=== PATIENT | female | born 1945 | race Caucasian/White ===

== ENCOUNTER → 2020-06-03 11:32 | Outpatient (BNVA) | payer MEDICARE, SELFPAY | PROVIDERS: Family Provider Nurse Practitioner; PCP Nurse Practitioner Family; Visit Provider Nurse Practitioner Family | DX: E11.9 Type 2 diabetes mellitus without complications (principal); E55.9 Vitamin D deficiency, unspecified; R41.0 Disorientation, unspecified; R53.83 Other fatigue; Z13.6 Encounter for screening for cardiovascular disorders | CPT/HCPCS: 80053; 80061; 82306; 83036; 84439; 84443; 84481; 85025 ==

== ENCOUNTER → 2020-06-04 15:31 | Outpatient (BNVA) | payer MEDICARE, SELFPAY | PROVIDERS: Family Provider Nurse Practitioner; PCP Nurse Practitioner Family; Visit Provider Nurse Practitioner Family | DX: N39.0 Urinary tract infection, site not specified (principal); E11.9 Type 2 diabetes mellitus without complications; R31.9 Hematuria, unspecified | CPT/HCPCS: 80053; 81003 ==

== ENCOUNTER 2020-06-17 19:18 | Emergency (ER) | payer MEDICARE, SELFPAY ==
[2020-06-17 19:28] VITALS: BP 126/90; PULSE 106; RESP 19; TEMP 37.2; O2SAT 96; BMI 24.2
--- NOTE | 2020-06-17 19:30 | XRR_ITS ---
PROCEDURE INFORMATION: Exam: XR Chest, 1 View Exam date and time: 06/17/2020 8:04 PM Age: 75 years old Clinical indication: Dyspnea TECHNIQUE: Imaging protocol: XR of the chest Views: 1 view. COMPARISON: No relevant prior studies available. FINDINGS: Lungs: Unremarkable. No consolidation. Pleural space: Unremarkable. No pleural effusion. No pneumothorax. Heart/Mediastinum: Unremarkable. No cardiomegaly. Bones/joints: Unremarkable. XR/XR chest 1V portable [id number] IMPRESSION: No acute findings.
[2020-06-17 19:34] VITALS: PULSE 107; RESP 18; O2SAT 95
[2020-06-17 19:44] LABS: ABG PCO2 30.7 mmHg (35-45); ABG PH Result 7.44 (7.35-7.45); Arterial Blood Gas Hematocrit 44.5 % (37-47); Base Excess ABG -2.3 mmol/L (-2.0-2.0); Blood Gas Allen Test Pos; Blood Gas Sample Site Radial, right; Blood Gas Sample Type Arterial; HCO3 ABG 20.8 mmol/L (22-26); PO2 ABG 74.2 mmHg (80.0-100.0)
--- NOTE | 2020-06-17 19:55 | W.ED.COVID ---
HPI - COVID General: Chief Complaint: COVID symptoms Stated Complaint: WEAKNESS Time Seen by Provider: 06/17/20 19:30 Source: patient and EMS Mode of arrival: EMS Limitations: no limitations Triage information: Has fever, cough or shortness of breath. Exposure to COVID + person last 14 days History of Present Illness: HPI Narrative: Ms. Ridley is a very nice 75-year-old female who comes in complaining of persistent nausea. Patient states she is not eating or drinking much because she is severely nauseated and nothing tastes good and she does not want to eat or drink. Patient has mild shortness of breath and her is currently hospitalized for the COVID-19 virus. She does not report significant fever, cough, loss of sense of taste or loss sense of smell. She complains of generalized weakness and just severe nausea. States otherwise she feels well denies any other complaints or concerns. COVID 19 common symptoms: positive nausea; negative fever(s), chills, non-productive cough, productive cough, dyspnea, fatigue, body aches, headache(s), throat pain, vomiting or diarrhea COVID 19 other sytmptoms: negative chest pain or confusion COVID Results: SARS-CoV-2 Antigen (Rapid) Positive (Negative) H 06/17/20 19:37 06/17/20 Review of Systems Const: Denies: fever(s), chills, body aches, fatigue, malaise or diaphoresis Eyes: Denies: change in vision, blurry vision, photophobia, eye discomfort, eye discharge, eye redness or yellow eyes ENMT: Denies: throat pain, odynophagia, hoarseness, swelling of lips/tongue, ear or mastoid pain, ear discharge, change in hearing or nasal discharge Card: Denies: chest pain, palpitations, irregular heart rhythm, edema, lightheadedness, syncope, pre-syncope, dyspnea on exertion or orthopnea Resp: Denies: dyspnea, productive cough, non-productive cough, wheezing, hemoptysis or chest congestion GI: Reports: nausea; Denies: abdominal pain, vomiting, hematemesis, coffee ground emesis, heartburn, diarrhea, constipation, GI cramping, hematochezia or melena : Denies: flank pain, dysuria, urinary frequency, urinary urgency or hematuria Musc: Denies: neck pain, back pain, extremity pain, extremity swelling, joint pain, joint swelling, joint redness, joint warmth or joint stiffness Skin/Breast: Denies: rash, pruritus, erythema, skin pain or skin tenderness Neuro: Denies: headache(s), numbness in extremities, weakness in extremities, sensory changes, lack of coordination, difficulty walking, dizziness, vertigo, confusion, Slurred speech present or seizure-like activity Clay/Lymph: Denies: easy bruising, easy bleeding, petechiae, purpura or enlarged lymph nodes All/Imm: Denies: urticaria, throat swelling, tongue swelling, facial swelling or acute wheezing PFSH ED PFSH: Medical History Confusion Diabetes mellitus, type II Fatigue Hypertension screen Lower respiratory infection Urinary incontinence Urinary tract infection Vitamin D deficiency Surgical History S/P abdominal hysterectomy S/P cholecystectomy Physical Exam Const: COMMON NORMALS: no acute distress, patient oriented x3, no limitations and alert GENERAL APPEARANCE: cooperative HENMT: COMMON NORMALS: normocephalic, atraumatic, external ears normal, EAC's normal and Normal external nose present HEAD & SCALP: normal to inspection, normocephalic and atraumatic FACE & SINUS: normal facial exam and face symmetric NOSE: Normal external nose present and Normal nares present EXTERNAL EAR: Yes external ears normal EXTERNAL AUDITORY CANAL: EAC's normal MOUTH: Normal oral and palatal mucosa present, lip normal and tongue normal Eye: COMMON NORMALS: Equal, round and reactive pupils present and conjunctivae normal GENERAL EYE: appearance normal, both eyes and all related structures ALIGNMENT: Yes alignment normal PERIORBITAL: periorbital findings normal EYELID: eyelids normal CONJUNCTIVA: Yes conjunctivae normal SCLERA: sclerae normal PUPIL: Yes Equal, round and reactive pupils present Neck/C-Spine: COMMON NORMALS: full ROM, no lymphadenopathy, supple, no meningeal signs and no JVD GENERAL: Yes normal visual inspection and Yes trachea midline Chest: COMMONS NORMALS: normal inspection of the chest and normal palpation of entire chest wall Resp: COMMON NORMALS: normal respiratory effort, No retractions, No use of accessory muscles and clear to auscultation bilaterally EFFORT & INSPECTION: Yes able to speak in complete sentences and Yes symmetric chest movement AUSCULTATION: clear to auscultation bilaterally, no crackles, no rales, no rhonchi and no wheezes Cardio: COMMON NORMALS: no JVD, regular rate, regular rhythm, S1 normal heart sound present and S2 normal heart sound present RATE: regular rate RHYTHM: regular rhythm HEART SOUNDS: S1 normal heart sound present, S2 normal heart sound present, no click, no gallops, no murmurs and no rubs GI: COMMON NORMALS: Soft to palpation and No hepatosplenomegaly present PALPATION: Yes Soft to palpation, No Tenderness to palpation present (GI), No Guarding due to palpation present (GI), No Rigid due to palpation, Yes No hepatosplenomegaly present, No Hernia present, No Palpable mass present and No Pulsatile mass present : COMMON NORMALS: Yes no CVA tenderness BLADDER/KIDNEY EXAM: Yes no CVA tenderness EXTERNAL FEMALE EXAM: No Hernia present Back/Pelvis: COMMON NORMALS: no CVA tenderness, thoracic and lumbar spine normal to inspection, no thoracic nor lumbar tenderness and thoraco-lumbar ROM normal Extremity: COMMON NORMALS: normal to inspection, full ROM, capillary refill normal, no joint enlargement, no clubbing, cyanosis or edema and no calf tenderness Neuro: COMMON NORMALS: patient oriented x3, CN's II-XII intact bilaterally, moves all extremities, no focal motor deficits and no sensory deficits noted SENSORIUM/ORIENTATION: Yes alert MENINGEAL SIGNS: Yes no meningeal signs SPEECH: speech normal Psych: COMMON NORMALS: mental status grossly normal, Normal thought process present, cooperative, normal affect, speech normal and activity/motor behavior normal SPEECH: Yes normal speech THOUGHT PROCESS: Normal thought process present Skin: COMMON NORMALS: no rashes or lesions noted, turgor normal, no jaundice, no petechiae and no mottling GENERAL SKIN EXAM: no rashes or lesions noted and turgor normal Course Vital Signs: Vital signs: Vital Signs Temperature 98.5 F 06/17/20 23:29 Pulse Rate 95 06/17/20 23:29 Respiratory Rate 16 06/17/20 23:29 Blood Pressure 118/70 06/17/20 23:29 Pulse Oximetry 95 06/17/20 23:29 MDM - COVID MDM Narrative Medical decision making narrative: Mrs. Ridley is a very nice 75-year-old female who comes in complaining of primarily nausea. Her is COVID-19 positive and she was uncertain of her status but her test tonight is positive. The patient is not hypoxic, hypotensive and she does not appear septic to my evaluation. Patient has been able to eat and drink here. She is feeling better after IV fluids. I did review with her at length things that she would need to do at home such as boost, Ensure and I have prescribed nausea medicine for her at discharge. She went home with a pulse oximeter and will monitor her pulse ox there and if it goes low she will return but here her vital signs of all been normal. Patient declines any further evaluation and care and is ready to go home. Lab Data Attestation: I reviewed the patient's lab results. Result diagrams: 06/17/20 19:43 06/17/20 19:43 Labs: Lab Results 06/17/20 06/17/20 06/17/20 Range/Units 19:35 19:37 19:43 WBC (4.0-10.0) 10^3/uL RBC (4.1-5.3) 10^6/uL Hgb (11.5-15.3) g/dL Hct (37.0-47.0) % MCV (81-99) fL MCH (28.0-34.0) pg MCHC (30.0-36.0) g/dL RDW (12.1-15.1) % Plt Count (130-400) 10^3/cmm MPV (7.4-10.4) fL Neut % (Auto) % Lymph % (Auto) % Rincon % (Auto) % Eos % (Auto) % Baso % (Auto) % Neut # (Auto) (1.8-7.7) 10^3/uL Lymph # (Auto) (0.8-4.8) 10^3/uL Rincon # (Auto) (0.2-0.9) 10^3/uL Eos # (Auto) (0.0-0.8) 10^3/uL Baso # (Auto) (0.0-0.1) 10^3/uL Nucleated RBC % (auto) % Nucleated RBCs # /100WBC PT 14.30 (12.1-14.9) SECONDS INR 1.07 (0.8-1.2) Fibrinogen 621 H (174-498) mg/dL Specimen Type Arterial Sample Site Radial, right ABG pH 7.44 (7.35-7.45) ABG pCO2 30.7 L (35-45) mmHg ABG pO2 74.2 L (80.0-100.0) mmHg ABG HCO3 20.8 L (22-26) mmol/L ABG Base Excess -2.3 L (-2.0-2.0) mmol/L William Test Pos Hematocrit 44.5 (37-47) % Key Account Manager ID [id number] Sodium (136-145) mmol/L Potassium (3.5-5.1) mmol/L Chloride (98-107) mmol/L Carbon Dioxide (22-29) mmol/L Anion Gap (5-19) BUN (8-23) mg/dL Creatinine (0.5-0.9) mg/dL GFR Calculation Glucose (65-115) mg/dL Calculated Osmolality (285-295) mOsm/kg Lactic Acid (0.5-2.2) mmol/L Calcium (8.5-10.5) mg/dL Magnesium (1.7-2.3) mg/dL Ferritin (15-150) ng/mL Total Bilirubin (0.15-1.2) mg/dL AST (0-32) U/L ALT (0-33) U/L Alkaline Phosphatase (35-105) IU/L Lactate Dehydrogenase (135-214) U/L C-Reactive Protein (0.0-4.9) mg/L Total Protein (6.6-8.7) g/dL Albumin (3.5-5.2) g/dL Globulin (1.3-4.6) g/dL Lipase (13-60) U/L Procalcitonin (0-0.5) ng/mL Urine Color (Yellow) Urine Appearance (CLEAR) Urine pH (5-7) Ur Specific Parker (1.005-1.030) Urine Protein (Negative) Urine Glucose (UA) (Normal) Urine Ketones (Negative) Urine Blood (Negative) Urine Nitrate (Negative) Urine Bilirubin (Negative) Urine Urobilinogen (Negative) mg/dL Ur Leukocyte Esterase (Negative) Urine RBC (0-2) /hpf Urine WBC (0-5) /hpf Ur Squamous Epith Cells (0-5) /hpf Amorphous Sediment Urine Bacteria (NONE) /hpf Hyaline Casts /lpf Urine Mucus /hpf SARS-CoV-2 Ag (Rapid) Positive H (Negative) 06/17/20 06/17/20 06/17/20 Range/Units 19:43 19:43 19:43 WBC 11.6 H (4.0-10.0) 10^3/uL RBC 5.28 (4.1-5.3) 10^6/uL Hgb 14.8 (11.5-15.3) g/dL Hct 44.1 (37.0-47.0) % MCV 83.5 (81-99) fL MCH 28.0 (28.0-34.0) pg MCHC 33.6 (30.0-36.0) g/dL RDW 12.7 (12.1-15.1) % Plt Count 220 (130-400) 10^3/cmm MPV 10.6 H (7.4-10.4) fL Neut % (Auto) 88.2 % Lymph % (Auto) 7.8 % Rincon % (Auto) 3.4 % Eos % (Auto) 0.1 % Baso % (Auto) 0.2 % Neut # (Auto) 10.23 H (1.8-7.7) 10^3/uL Lymph # (Auto) 0.9 (0.8-4.8) 10^3/uL Rincon # (Auto) 0.4 (0.2-0.9) 10^3/uL Eos # (Auto) 0.0 (0.0-0.8) 10^3/uL Baso # (Auto) 0.0 (0.0-0.1) 10^3/uL Nucleated RBC % (auto) 0 % Nucleated RBCs # 0.0 /100WBC PT (12.1-14.9) SECONDS INR (0.8-1.2) Fibrinogen (174-498) mg/dL Specimen Type Sample Site ABG pH (7.35-7.45) ABG pCO2 (35-45) mmHg ABG pO2 (80.0-100.0) mmHg ABG HCO3 (22-26) mmol/L ABG Base Excess (-2.0-2.0) mmol/L William Test Hematocrit (37-47) % Key Account Manager ID Sodium 133 L (136-145) mmol/L Potassium 3.8 (3.5-5.1) mmol/L Chloride 93 L (98-107) mmol/L Carbon Dioxide 21 L (22-29) mmol/L Anion Gap 22.8 H (5-19) BUN 23 (8-23) mg/dL Creatinine 0.7 (0.5-0.9) mg/dL GFR Calculation Not Reportable Glucose 286 H (65-115) mg/dL Calculated Osmolality 290 (285-295) mOsm/kg Lactic Acid 1.9 (0.5-2.2) mmol/L Calcium 9.0 (8.5-10.5) mg/dL Magnesium 2.2 (1.7-2.3) mg/dL Ferritin 862 H (15-150) ng/mL Total Bilirubin 0.9 (0.15-1.2) mg/dL AST 50 H (0-32) U/L ALT 57 H (0-33) U/L Alkaline Phosphatase 106 H (35-105) IU/L Lactate Dehydrogenase 317 H (135-214) U/L C-Reactive Protein 129.7 H (0.0-4.9) mg/L Total Protein 7.2 (6.6-8.7) g/dL Albumin 3.9 (3.5-5.2) g/dL Globulin 3.3 (1.3-4.6) g/dL Lipase 23 (13-60) U/L Procalcitonin 0.38 (0-0.5) ng/mL Urine Color (Yellow) Urine Appearance (CLEAR) Urine pH (5-7) Ur Specific Parker (1.005-1.030) Urine Protein (Negative) Urine Glucose (UA) (Normal) Urine Ketones (Negative) Urine Blood (Negative) Urine Nitrate (Negative) Urine Bilirubin (Negative) Urine Urobilinogen (Negative) mg/dL Ur Leukocyte Esterase (Negative) Urine RBC (0-2) /hpf Urine WBC (0-5) /hpf Ur Squamous Epith Cells (0-5) /hpf Amorphous Sediment Urine Bacteria (NONE) /hpf Hyaline Casts /lpf Urine Mucus /hpf SARS-CoV-2 Ag (Rapid) (Negative) 06/17/20 Range/Units 21:42 WBC (4.0-10.0) 10^3/uL RBC (4.1-5.3) 10^6/uL Hgb (11.5-15.3) g/dL Hct (37.0-47.0) % MCV (81-99) fL MCH (28.0-34.0) pg MCHC (30.0-36.0) g/dL RDW (12.1-15.1) % Plt Count (130-400) 10^3/cmm MPV (7.4-10.4) fL Neut % (Auto) % Lymph % (Auto) % Rincon % (Auto) % Eos % (Auto) % Baso % (Auto) % Neut # (Auto) (1.8-7.7) 10^3/uL Lymph # (Auto) (0.8-4.8) 10^3/uL Rincon # (Auto) (0.2-0.9) 10^3/uL Eos # (Auto) (0.0-0.8) 10^3/uL Baso # (Auto) (0.0-0.1) 10^3/uL Nucleated RBC % (auto) % Nucleated RBCs # /100WBC PT (12.1-14.9) SECONDS INR (0.8-1.2) Fibrinogen (174-498) mg/dL Specimen Type Sample Site ABG pH (7.35-7.45) ABG pCO2 (35-45) mmHg ABG pO2 (80.0-100.0) mmHg ABG HCO3 (22-26) mmol/L ABG Base Excess (-2.0-2.0) mmol/L William Test Hematocrit (37-47) % Key Account Manager ID Sodium (136-145) mmol/L Potassium (3.5-5.1) mmol/L Chloride (98-107) mmol/L Carbon Dioxide (22-29) mmol/L Anion Gap (5-19) BUN (8-23) mg/dL Creatinine (0.5-0.9) mg/dL GFR Calculation Glucose (65-115) mg/dL Calculated Osmolality (285-295) mOsm/kg Lactic Acid (0.5-2.2) mmol/L Calcium (8.5-10.5) mg/dL Magnesium (1.7-2.3) mg/dL Ferritin (15-150) ng/mL Total Bilirubin (0.15-1.2) mg/dL AST (0-32) U/L ALT (0-33) U/L Alkaline Phosphatase (35-105) IU/L Lactate Dehydrogenase (135-214) U/L C-Reactive Protein (0.0-4.9) mg/L Total Protein (6.6-8.7) g/dL Albumin (3.5-5.2) g/dL Globulin (1.3-4.6) g/dL Lipase (13-60) U/L Procalcitonin (0-0.5) ng/mL Urine Color Yellow (Yellow) Urine Appearance Sl hazy (CLEAR) Urine pH 5 (5-7) Ur Specific Parker 1.020 (1.005-1.030) Urine Protein Neg (Negative) Urine Glucose (UA) 4+ H (Normal) Urine Ketones 3+ H (Negative) Urine Blood Neg (Negative) Urine Nitrate Negative (Negative) Urine Bilirubin Neg (Negative) Urine Urobilinogen Norm (Negative) mg/dL Ur Leukocyte Esterase Negative (Negative) Urine RBC 0-4 H (0-2) /hpf Urine WBC 5-10 H (0-5) /hpf Ur Squamous Epith Cells 10-15 H (0-5) /hpf Amorphous Sediment Not Reportable Urine Bacteria 1+ H (NONE) /hpf Hyaline Casts 0-4 H /lpf Urine Mucus 1+ /hpf SARS-CoV-2 Ag (Rapid) (Negative) COVID Results: SARS-CoV-2 Antigen (Rapid) Positive (Negative) H 06/17/20 19:37 06/17/20 Imaging Data CXR: Attestation: I personally reviewed and interpreted this imaging study as follows: My impression: No acute cardiopulmonary findings. Discharge Plan Discharge Patient Disposition: Home Clinical Impression: Viral pneumonitis, COVID-19 virus infection Condition: Stable Prescriptions: New Decadron 6 mg tablet 6 mg PO DAILY Qty: 10 RF: 0 No Action Combigan 0.2-0.5 % drops 1 drop ophthalmic (eye) BID RF: 0 glimepiride 1 mg tablet PO RF: 0 ciprofloxacin HCl [Cipro] 250 mg tablet 250 mg PO BID 5 Days Qty: 10 RF: 0 Januvia 25 mg tablet 25 mg PO DAILY 90 Days Qty: 90 RF: 1 oxybutynin chloride 5 mg tablet 5 mg PO DAILY 30 Days Qty: 30 RF: 0 levofloxacin 500 mg tablet 500 mg PO DAILY 5 Days Qty: 5 RF: 0 azithromycin 250 mg tablet See Rx Instructions PO .COMPLEX Qty: 6 RF: 0 Discharge Orders: Discharge Order (Routine); Ordered 06/17/20 Ordered By: Keren Jimenez Referrals: Joe Petersen MD [Physician] - Discharge Diet: Advance as tolerated Discharge Activity: Increase activity as tolerated Patient Instructions: Viral Pneumonia (ED) Activity Restrictions/Additional Instructions: Please return to the ER immediately for any of the signs or symptoms listed on your discharge instruction sheets, worsening/changing of your symptoms, you are not getting better as quickly as expected, or for ANY other cause or concerns. Keep yourself at home and quarantined away from anyone else until your doctor or the health department says that you are okay to resume your normal activities. Return to the ER for uncontrolled fever, increased shortness of breath, increased weakness, or for any other cause for concern. Use the pulse oximeter that was given you at discharge and if your pulse oximetry goes below 90% please return to the ER for recheck. Discharge Date/Time: 06/17/20 23:29 Coding Level of Care Code ED [employer] for Aidee Fwd Exam Comprehensive
[2020-06-17 20:02] VITALS: BP 134/81; PULSE 104; RESP 17; O2SAT 95
[2020-06-17 20:05] LABS: Basophils % 0.2 %; Eosinophils % 0.1 %; Hematocrit 44.1 % (37.0-47.0); Hemoglobin 14.8 g/dL (11.5-15.3); Lymphocytes # 0.9 10^3/uL (0.8-4.8); Lymphocytes % 7.8 %; Mean Corpuscular HGB Conc 33.6 g/dL (30.0-36.0); Mean Corpuscular Volume 83.5 fL (81-99); Mean Platelet Volume 10.6 fL (7.4-10.4); Monocytes # 0.4 10^3/uL (0.2-0.9); Monocytes % 3.4 %; Neutrophils # 10.23 10^3/uL (1.8-7.7); Neutrophils % 88.2 %; Nucleated Red Blood Cells % 0 %; Platelet Count 220 10^3/cmm (130-400); Red Blood Count 5.28 10^6/uL (4.1-5.3); Red Cell Distribution Width 12.7 % (12.1-15.1); White Blood Count 11.6 10^3/uL (4.0-10.0)
[2020-06-17] MEDS: ondansetron 2 mg/ML SDV 2 mL 4 MG IVP (20:05)
[2020-06-17] MEDS: sodium chloride 0.9% 1,000 ML 999 ML IV ×2 (20:05→21:47)
[2020-06-17 20:11] LABS: Fibrinogen 621 mg/dL (174-498); INR 1.07 (0.8-1.2)
[2020-06-17 20:24] LABS: Lactic Sepsis W/Reflex 1.9 mmol/L (0.5-2.2)
--- NOTE | 2020-06-17 20:25 | PC.NURSE ---
Patient felt like she needed to urinate. Patient tired to urinate but was unable to go.
[2020-06-17 20:27] LABS: Procalcitonin 0.38 ng/mL (0-0.5)
[2020-06-17 20:38] LABS: Alanine Aminotransferase 57 U/L (0-33); Albumin Level 3.9 g/dL (3.5-5.2); Alkaline Phosphatase 106 IU/L (35-105); Anion Gap 22.8 (5-19); Aspartate Amino Transferase 50 U/L (0-32); Blood Urea Nitrogen 23 mg/dL (8-23); C Reactive Protein 129.7 mg/L (0.0-4.9); Carbon Dioxide 21 mmol/L (22-29); Chloride 93 mmol/L (98-107); Ferritin 862 ng/mL (15-150); Globulin 3.3 g/dL (1.3-4.6); Glucose 286 mg/dL (65-115); Lactate Dehydrogenase 317 U/L (135-214); Lipase 23 U/L (13-60); Magnesium 2.2 mg/dL (1.7-2.3); Osmolality Calculated 290 mOsm/kg (285-295); Potassium 3.8 mmol/L (3.5-5.1); Sodium 133 mmol/L (136-145); Total Bilirubin 0.9 mg/dL (0.15-1.2); Total Protein 7.2 g/dL (6.6-8.7)
[2020-06-17 21:11] LABS: SARS Covid-2 Antigen Positive (Negative)
[2020-06-17 21:42] VITALS: BP 108/62; PULSE 84; RESP 16; O2SAT 95
[2020-06-17] MEDS: dexamethasone 10 mg/mL INJ IVP (21:45)
[2020-06-17 22:18] LABS: Bilirubin Urine Neg (Negative); Blood Urine Neg (Negative); Glucose Urine UA 4+ (Normal); Ketones Urine 3+ (Negative); Leukocyte Esterase Urine Negative (Negative); Nitrate Urine Negative (Negative); Protein Urine Neg (Negative); Urine Appearance SL Hazy (CLEAR); Urine Color Yellow (Yellow); Urobilinogen Urine Norm (Negative); pH Urine 5 (5-7)
[2020-06-17 22:19] LABS: RBC Urine 0-4 /hpf (0-2)
[2020-06-17 22:20] LABS: Bacteria Urine 1+ /hpf; Hyaline Casts Urine 0-4 /lpf; Mucus Urine 1+ /hpf
[2020-06-17 22:21] LABS: Add Urine Culture? No
[2020-06-17 23:29] VITALS: BP 118/70; PULSE 95; RESP 16; TEMP 36.9; O2SAT 95
== END 2020-06-17 23:29 | disposition home or self-care (01) ==
PROVIDERS: Emergency Provider Emergency Medicine
DX: U07.1 COVID-19 (principal); J12.89 Other viral pneumonia; E11.9 Type 2 diabetes mellitus without complications
CPT/HCPCS: 12345; 36600; 71045; 80053; 81001; 82728; 82803; 83605; 83615; 83690; 83735; 84145; 85025; 85384; 85610; 86140; 87040; 87426; 96361; 96374; 96375; 99283; 99284; J1100; J2405; J7030

== ENCOUNTER → 2020-07-08 11:51 | Outpatient (BNVA) | payer MEDICARE, SELFPAY | PROVIDERS: Visit Provider Nurse Practitioner Family | DX: E11.9 Type 2 diabetes mellitus without complications (principal); D64.9 Anemia, unspecified; E55.9 Vitamin D deficiency, unspecified | CPT/HCPCS: 36415; 80053; 82607; 82728; 85025 ==

== ENCOUNTER → 2021-06-18 09:28 | Outpatient (BNVA) | payer MEDICARE, SELFPAY | PROVIDERS: PCP Nurse Practitioner Family; Visit Provider Nurse Practitioner Family | DX: E11.9 Type 2 diabetes mellitus without complications (principal); R53.83 Other fatigue; Z13.6 Encounter for screening for cardiovascular disorders; E55.9 Vitamin D deficiency, unspecified | CPT/HCPCS: 80053; 80061; 81003; 82306; 83036; 83735; 84100; 84443; 85025; 87086 ==

== ENCOUNTER → 2021-07-07 11:44 | Outpatient (BNVA) | payer MEDICARE, SELFPAY | PROVIDERS: PCP Nurse Practitioner Family; Visit Provider Nurse Practitioner Family | DX: D64.89 Other specified anemias (principal); R32 Unspecified urinary incontinence | CPT/HCPCS: 81003; 82607; 83921; 87086 ==

== ENCOUNTER → 2021-08-04 09:43 | Outpatient (BNVA) | payer MEDICARE, SELFPAY | PROVIDERS: PCP Nurse Practitioner Family; Visit Provider Nurse Practitioner Family | DX: N39.0 Urinary tract infection, site not specified (principal) | CPT/HCPCS: 81003; 87077; 87086; 87184 ==

== ENCOUNTER → 2021-08-28 08:59 | Outpatient (BNVA) | payer MEDICARE, SELFPAY | PROVIDERS: PCP Nurse Practitioner Family; Visit Provider Urology | DX: N39.0 Urinary tract infection, site not specified (principal) | CPT/HCPCS: 81003 ==

== ENCOUNTER → 2021-12-22 13:49 | Outpatient (BNVA) | payer MEDICARE, SELFPAY | PROVIDERS: PCP Nurse Practitioner Family; Visit Provider Urology | DX: N39.0 Urinary tract infection, site not specified (principal); N39.41 Urge incontinence; R41.89 Other symptoms and signs involving cognitive functions and awareness | CPT/HCPCS: 81003 ==

== ENCOUNTER → 2024-08-01 16:16 | Outpatient (BNVA) | payer MEDICARE, SELFPAY | PROVIDERS: PCP Nurse Practitioner Family; Visit Provider Nurse Practitioner | DX: N39.0 Urinary tract infection, site not specified (principal) | CPT/HCPCS: 81000 ==

== ENCOUNTER → 2024-08-09 16:15 | Outpatient (BNVA) | payer MEDICARE, SELFPAY | PROVIDERS: PCP Nurse Practitioner Family; Visit Provider Nurse Practitioner Family | DX: Z13.6 Encounter for screening for cardiovascular disorders (principal); E55.9 Vitamin D deficiency, unspecified; E11.9 Type 2 diabetes mellitus without complications; N39.0 Urinary tract infection, site not specified; D64.89 Other specified anemias; R53.83 Other fatigue | CPT/HCPCS: 80053; 80061; 81003; 82306; 82607; 83036; 83550; 83721; 84443; 85025 ==

== ENCOUNTER → 2024-08-15 10:45 | Outpatient (BNVA) | payer MEDICARE, SELFPAY | PROVIDERS: PCP Nurse Practitioner Family; Visit Provider Nurse Practitioner Family | DX: Z13.6 Encounter for screening for cardiovascular disorders (principal); E11.9 Type 2 diabetes mellitus without complications; E55.9 Vitamin D deficiency, unspecified; N39.0 Urinary tract infection, site not specified; D64.89 Other specified anemias; R53.83 Other fatigue | CPT/HCPCS: 81003; 87086 ==

== ENCOUNTER → 2025-07-02 10:46 | Outpatient (BNVA) | payer MEDICARE, SELFPAY | PROVIDERS: PCP Nurse Practitioner Family; Visit Provider Nurse Practitioner Family | DX: S99.921A Unspecified injury of right foot, initial encounter (principal); W19.XXXA Unspecified fall, initial encounter; E55.9 Vitamin D deficiency, unspecified; E11.9 Type 2 diabetes mellitus without complications; D64.89 Other specified anemias; R41.89 Other symptoms and signs involving cognitive functions and awareness; U07.1 COVID-19; M16.11 Unilateral primary osteoarthritis, right hip; M19.071 Primary osteoarthritis, right ankle and foot | CPT/HCPCS: 73502; 73630; 80053; 80061; 82306; 82607; 82728; 82746; 83036; 83550; 84443; 85025 ==

== ENCOUNTER 2025-07-03 12:53 | Inpatient (IN) | payer MEDICARE, SELFPAY ==
[2025-07-03] VITALS (9 sets, daily range): BP systolic 159–189; BP diastolic 69–92; PULSE 73–85; RESP 16–17; TEMP 36.8–36.9; O2SAT 93–97; BMI 21.9; BMI 22.6
--- NOTE | 2025-07-03 12:54 | W.ED.EXTPRO ---
HPI - Extremity Problem General: Chief complaint: Extremity Injury, Lower Stated complaint: Fall, AMS History of Present Illness: 80-year-old female with a history of recurrent urinary tract infections, obesity, diabetes, cognitive decline/dementia who presents to the emergency room with confusion, weakness and right foot injury. She is pleasantly confused but smells of urine and nursing reports was also covered in feces and is the beginnings of a sacral wound. She only complains of foot pain. She says she does not know why she is here. No chest pain. No abdominal pain. No reports of vomiting. No focal motor deficits. She is slightly hypertensive on presentation. Related Data Home Medications ?Medication ?Instructions ?Recorded ?Confirmed brimonidine 0.2 %-timolol 0.5 % 1 drop ophthalmic (eye) BID 05/31/20 07/02/25 eye drops [id number] tab PO 08/09/24 07/02/25 fumarate 18 mg-folic acid 400 mcg tablet (One-A-Day Women's Complete) cholecalciferol (vitamin D3) 50 50 mcg PO DAILY 07/03/25 07/03/25 mcg (2,000 unit) tablet (Vitamin D3) cyanocobalamin (vitamin B-12) 1,000 mcg IM Q30D 07/03/25 07/03/25 1,000 mcg/mL injection solution donepezil 10 mg tablet 10 mg PO QPM 07/03/25 07/03/25 glipizide 10 mg tablet 10 mg PO BID 07/03/25 07/03/25 Previous Rx's ?Medication ?Instructions ?Recorded syringe with needle 3 mL 25 x 5/8 #50 ea 06/26/25 (BD Eclipse Luer-Savita) Allergies Allergy/AdvReac Type Severity Reaction Status Date / Time Penicillins Allergy Intermediate rash Verified 07/02/25 10:42 Sulfa (Sulfonamide Allergy Intermediate rash Verified 07/02/25 10:42 Antibiotics) Review of Systems Narrative: Constitutional symptoms: Negative except as documented in HPI. Skin symptoms: Negative except as documented in HPI. Eye symptoms: Negative except as documented in HPI. ENMT symptoms: Negative except as documented in HPI. Respiratory symptoms: Negative except as documented in HPI. Cardiovascular symptoms: Negative except as documented in HPI. Gastrointestinal symptoms: Negative except as documented in HPI. Genitourinary symptoms: Negative except as documented in HPI. Musculoskeletal symptoms: Negative except as documented in HPI. Neurologic symptoms: Negative except as documented in HPI. Psychiatric symptoms: Negative except as documented in HPI. Endocrine symptoms: Negative except as documented in HPI. PFSH ED PFSH: Medical History (Updated 07/03/25 @ 14:32 by Yessenia Moreno MD) Generalized weakness Fall in home, subsequent encounter Urgency incontinence Recurrent UTI Anemia Lower respiratory infection Urinary incontinence Hypertension screen Confusion Fatigue Vitamin D deficiency Diabetes mellitus, type II Surgical History S/P abdominal hysterectomy S/P cholecystectomy Family History Father , AT AGE 64 CAD (coronary artery disease) Mother , IN HER EARLY 70'S CAD (coronary artery disease) Social History Smoking and tobacco/nicotine status: never used tobacco/nicotine Alcohol intake: never Marital status: Current occupational status: retired Physical Exam Narrative: EXAM NARRATIVE: General: Alert, no acute distress. Skin: Warm, dry. Head: Normocephalic, atraumatic. Neck: Supple, trachea midline. Eye: Extraocular movements are intact. Ears, nose, mouth and throat: mucosa moist. Cardiovascular: Regular, Normal peripheral perfusion. Respiratory: Lungs are clear to auscultation, respirations are non-labored, breath sounds are equal, Symmetrical chest wall expansion. Gastrointestinal: Soft, Nontender, Non distended Musculoskeletal: Normal ROM, no deformity. Some bruising on the top of her right foot. Neurological: Alert and oriented to herself and only, No focal neurological deficit observed. Psychiatric: Pleasantly confused Course Vital Signs: Vital signs: Vital Signs Temperature 98.5 F 07/03/25 12:22 Pulse Rate 73 07/03/25 14:30 Respiratory Rate 16 07/03/25 14:28 Blood Pressure 189/87 07/03/25 14:30 Pulse Oximetry 97 07/03/25 14:30 Oxygen Delivery Me thod Room Air 07/03/25 14:30 MDM - Extremity (Nontraumatic) Medical Decision Making Medical decision making: Patient's reason for coming to the emergency room: Confusion, foot pain Social determinants: Patient is and has been caring for her but she has become progressively worse and acutely worse today. She likely will need admission for the intermediate after being admitted here and treated for acute encephalopathy and urinary tract infection I reviewed the patient's medical record. 80-year-old female with a history of recurrent urinary tract infections, obesity, diabetes, cognitive decline/dementia I reviewed the patient's current home meds Patient is on donepezil so likely concerns for dementia. She is also on glipizide. For her diabetes. No anticoagulation listed Alternate historians: EMS. Family. Patient is not giving a reliable history at this time. I talked with son and . She has been having worsening symptoms for a couple of years now but is quite a bit worse today, likely secondary to a urinary tract infection. Differential diagnosis including but not limited to and based on the above HPI, review of systems and physical exam: In this patient with altered mental status: Stroke. Hypoglycemia. Metabolic encephalopathy. Infections such as pneumonia, urinary tract infection, Covid-19, Influenza. Electrolyte abnormalities such as hypernatremia. Renal failure / uremia. Hepatic encephalopathy. Hypoxemia. Hypercapnic respiratory failure. Psychosis. Drug or alcohol intoxication. Medication overdose. Orders placed to evaluate differential diagnosis based on the above differential, HPI and physical exam Chest x-ray: No acute process. No infiltrate. No pneumothorax. This was reviewed and interpreted by myself the emergency room physician. I also reviewed the radiology report. X-ray of the right foot: No acute fractures or dislocations. This was reviewed and interpreted by myself the emergency room physician. I also reviewed the radiology report. CT head without contrast: No acute hemorrhage or edema. Area of decreased attenuation and decreased attenuation involving the left frontal lobe. Appears to be prior infarct with encephalomalacia. No prior studies for comparison. MRI on a nonurgent basis recommended. This was reviewed and interpreted by myself the emergency room physician. I also reviewed the radiology report. EKG: Time 1331. Rate 82. Normal sinus rhythm, nonspecific ST changes, no ectopy, normal CT & QRS intervals, This was reviewed and interpreted by myself the ER physician at 1334 Lab Review: Laboratory results were reviewed and interpreted by myself the emergency room physician. No leukocytosis. No anemia. No renal failure. Patient does have a significant urinary tract infection. ABG shows no abnormalities. Assessment of risk: Level of risk moderate. Patient with a newly diagnosed frontal lobe stroke. This is likely fairly old and contributing to her dementia type symptoms. She is now developing a decubitus ulcer. Consideration of hospitalization: Patient is being hospitalized Reexamination: Patient remained stable. No increased work of breathing. No altered mental status. No focal motor deficits. She does remain a bit hypertensive. Pleasantly confused. I spoke at length with her son and . Consultation: I spoke with Dr. Dickens who is on-call for the hospitalist service who agrees to admission. Assessment and plan: Urinary tract infection Metabolic encephalopathy Cerebrovascular accident Dementia Dehydration Decubitus ulcer ?IV Rocephin and IV normal saline bolus in the emergency room -I discussed the patient with the hospitalist on-call who is admitting the patient. - Discussed findings and plan with patient. Answered any questions. - All laboratory values were reviewed and interpreted personally by myself, the ER physician - All imaging was reviewed and interpreted personally by myself, the ER physician. - Evaluation and treatment of this problem were appropriate in the emergency setting Lab Data 07/03/25 13:52 07/03/25 13:52 Radiology Impressions Chest X-Ray 07/03/25 12:56 IMPRESSION: 1. No acute cardiopulmonary finding. Foot X-Ray 07/03/25 12:56 IMPRESSION: 1. No acute fractures identified. Head CT 07/03/25 12:56 IMPRESSION: 1. No acute intracranial hemorrhage or edema. 2. Area of decreased attenuation and decreased attenuation involving the LEFT frontal lobe. Favor this is only a prior infarct with encephalomalacia. No prior studies for comparison. For further evaluation and exclude mass follow-up MRI with and without contrast can be obtained on a nonurgent basis if clinically thought necessary. No prior studies for comparison. Correlate with prior history of an infarct. 3. Mild atrophy and small vessel disease. Laboratory Results WBC 8.82 10^3/uL (3.29-11.43) 07/03/25 13:52 RBC 4.67 10^6/uL (3.85-5.65) 07/03/25 13:52 Hgb 13.50 g/dL (11.27-16.99) 07/03/25 13:52 Hct 40.1 % (36-47) 07/03/25 13:52 MCV 85.9 fl (85-98) 07/03/25 13:52 MCH 28.9 pg (27-33) 07/03/25 13:52 MCHC 33.7 g/dL (30-55) 07/03/25 13:52 RDW 13.4 % (12.1-15.1) 07/03/25 13:52 Plt Count 201 10^3/cmm (157-399) 07/03/25 13:52 MPV 9.6 fL (7.4-10.4) 07/03/25 13:52 Neut % (Auto) 73.7 % 07/03/25 13:52 Lymph % (Auto) 18.4 % 07/03/25 13:52 Mesa % (Auto) 4.9 % 07/03/25 13:52 Eos % (Auto) 2.2 % 07/03/25 13:52 Baso % (Auto) 0.5 % 07/03/25 13:52 Neut # (Auto) 6.51 10^3/uL (1.8-7.7) 07/03/25 13:52 Lymph # (Auto) 1.6 10^3/uL (0.8-4.8) 07/03/25 13:52 Mesa # (Auto) 0.4 10^3/uL (0.2-0.9) 07/03/25 13:52 Eos # (Auto) 0.2 10^3/uL (0.0-0.8) 07/03/25 13:52 Baso # (Auto) 0.0 10^3/uL (0.0-0.1) 07/03/25 13:52 Nucleated RBC % (auto) 0 % 07/03/25 13:52 Nucleated RBCs # 0.0 /100WBC 07/03/25 13:52 Specimen Type Arterial 07/03/25 13:21 Sample Site Radial, left 07/03/25 13:21 ABG pH 7.45 (7.35-7.45) 07/03/25 13:21 ABG pCO2 42.1 mmHg (35-45) 07/03/25 13:21 ABG pO2 70.8 mmHg (80.0-100.0) L 07/03/25 13:21 ABG PO2/FiO2 Ratio 337 07/03/25 13:21 ABG HCO3 29.1 mmol/L (22-26) H 07/03/25 13:21 ABG O2 Saturation 95.8 07/03/25 13:21 ABG Base Excess 4.5 mmol/L (-2.0-2.0) H 07/03/25 13:21 William Test Pos 07/03/25 13:21 A-a O2 Gradient 3.4 mmHg (5-10) L 07/03/25 13:21 Hematocrit 41.2 % (37-47) 07/03/25 13:21 Hgb O2 Saturation 94.3 % (95-100) L 07/03/25 13:21 Carboxyhemoglobin 1.4 %THgb (0.4-20.1) 07/03/25 13:21 Methemoglobin 0.2 % (0.4-1.5) L 07/03/25 13:21 Total Hemoglobin 13.4 g/dL (12-16) 07/03/25 13:21 Sodium 141.0 mmol/L (131-143) 07/03/25 13:21 Potassium 3.5 mmol/L (3.5-5.0) 07/03/25 13:21 Glucose 234.0 mg/dL (70-115) H 07/03/25 13:21 Ionized Calcium 1.2 mmol/L (1.1-1.4) 07/03/25 13:21 O2 Delivery Device Room air 07/03/25 13:21 FiO2 21.0 % 07/03/25 13:21 Contract Technician ID [place] 07/03/25 13:21 Sodium 140 mmol/L (136-145) 07/03/25 13:52 Potassium 3.9 mmol/L (3.5-5.1) 07/03/25 13:52 Chloride 99 mmol/L (98-107) 07/03/25 13:52 Carbon Dioxide 28 mmol/L (22-29) 07/03/25 13:52 Anion Gap 16.9 (5-19) 07/03/25 13:52 BUN 11 mg/dL (8-23) 07/03/25 13:52 Creatinine 0.6 mg/dL (0.5-0.9) 07/03/25 13:52 GFR Calculation Not Reportable 07/03/25 13:52 Glucose 229 mg/dL (65-115) H 07/03/25 13:52 Calculated Osmolality 297 mOsm/kg (285-295) H 07/03/25 13:52 Lactic Acid 2.0 mmol/L (0.5-2.2) 07/03/25 13:52 Calcium 9.5 mg/dL (8.5-10.5) 07/03/25 13:52 Total Bilirubin 0.7 mg/dL (0.15-1.2) 07/03/25 13:52 AST 56 U/L (0-32) H 07/03/25 13:52 ALT 48 U/L (0-33) H 07/03/25 13:52 Alkaline Phosphatase 112 U/L (35-105) H 07/03/25 13:52 Troponin T Baseline 12 ng/L (0-10) H 07/03/25 13:52 C-Reactive Protein 32.0 mg/L (0.0-4.9) H 07/03/25 13:52 Total Protein 6.6 g/dL (6.6-8.7) 07/03/25 13:52 Albumin 4.0 g/dL (3.5-5.2) 07/03/25 13:52 Globulin 2.6 g/dL (1.3-4.6) 07/03/25 13:52 Urine Color Dark yellow (Yellow) A 07/03/25 12:41 Urine Appearance Cloudy (CLEAR) A 07/03/25 12:41 Urine pH 7.5 (5-7) 07/03/25 12:41 Ur Specific Warren 1.019 (1.005-1.030) 07/03/25 12:41 Urine Protein Trace (Negative) A 07/03/25 12:41 Urine Glucose (UA) Trace (Normal) H 07/03/25 12:41 Urine Ketones 1+ (Negative) H 07/03/25 12:41 Urine Blood Negative (Negative) 07/03/25 12:41 Urine Nitrate Positive (Negative) A 07/03/25 12:41 Urine Bilirubin Negative (Negative) 07/03/25 12:41 Urine Urobilinogen 1.0 mg/dL (Negative) 07/03/25 12:41 Ur Leukocyte Esterase 1+ (Negative) A 07/03/25 12:41 Urine RBC 0-2 /hpf (0-2) 07/03/25 12:41 Urine WBC 21-50 /hpf (0-5) H 07/03/25 12:41 Ur Squamous Epith Cells 0-5 /hpf (0-5) 07/03/25 12:41 Amorphous Sediment Not Reportable 07/03/25 12:41 Urine Bacteria 4+ /hpf (NONE) H 07/03/25 12:41 Hyaline Casts 0-4 /lpf H 07/03/25 12:41 Influenza A (PCR) Negative (Negative) 07/03/25 13:28 Influenza Type B (PCR) Negative (Negative) 07/03/25 13:28 RSV (PCR) Negative (Negative) 07/03/25 13:28 SARS-CoV-2 (PCR) Negative (Negative) 07/03/25 13:28 All radiology interpretation(s) finalized by discharge Discharge Plan Discharge Patient Disposition: Admitted As Inpatient Clinical Impression: Urinary tract infection, Cerebrovascular accident, Cognitive decline, Decubitus ulcer, Unable to ambulate, Encephalopathy Condition: Stable Coding Level of Care Code ED Professor Of Religion for Aidee Bray
--- NOTE | 2025-07-03 12:56 | CT_ITS ---
WS: [id number] CT HEAD NONCONTRAST HISTORY: Encephalopathy, altered mental status TECHNIQUE: Contiguous axial imaging performed through the brain. Bone and soft tissue windows. Sagittal and coronal reformats reviewed. All CT scans at [facility] use at least one of these dose optimization techniques: automated exposure control; mA and/or kV adjustment per patient size (includes targeted exams where dose is matched to clinical indication); or iterative reconstruction. DLP: 1086.68 mGy.cm COMPARISON: None available. No acute intracranial hemorrhage, midline shift or mass effect. Mild cerebral atrophy and small vessel disease. There is edema and slight volume loss in the anterior LEFT frontal lobe. No prior studies for comparison. This is likely a prior infarct. Ventricles: Normal size with no hydrocephalus. No inferior displacement of the cerebellar tonsils. Paranasal sinuses: As visualized are clear. Mastoid air cells: Well pneumatized. Calvarium and scalp: Skull is intact with no soft tissue edema or swelling. CT/CT head wo con* [id number] IMPRESSION: 1. No acute intracranial hemorrhage or edema. 2. Area of decreased attenuation and decreased attenuation involving the LEFT frontal lobe. Favor this is only a prior infarct with encephalomalacia. No prio r studies for comparison. For further evaluation and exclude mass follow-up MRI with and without contrast can be obtained on a nonurgent basis if clinically t hought necessary. No prior studies for comparison. Correlate with prior history of an infarct. 3. Mild atrophy and small vessel disease.
--- NOTE | 2025-07-03 12:56 | XR_ITS ---
WS: [id number] Exam: XR chest 1V portable [id number] Date/Time of Exam: 07/03/2025 12:56 PM Reason For Exam: Weakness Comparison 06/17/2020. Lungs are fully inflated and clear. Cardiomediastinal silhouette is unremarkable for technique. No pleural effusion seen. Bony structures are intact. XR/XR chest 1V portable [id number] IMPRESSION: 1. No acute cardiopulmonary finding.
--- NOTE | 2025-07-03 12:56 | XR_ITS ---
WS: [id number] Exam: XR foot RT min 3V* [id number] Date/Time of Exam: 07/03/2025 12:56 PM Reason For Exam: injury, bruising No acute fracture. Degenerative changes in the IP and midfoot joints. Osteopenia. No soft tissue foreign bodies. XR/XR foot RT min 3V* [id number] IMPRESSION: 1. No acute fractures identified.
[2025-07-03 13:22] LABS: Glucose Urine UA Trace (Normal); Nitrate Urine Positive (Negative); Specific Gravity, Urine 1.019 (1.005-1.030)
--- NOTE | 2025-07-03 13:31 | ECG_ITS ---
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 Measurements Intervals [place] Rate: 82 P: 54 [place]: 166 QRS: 53 QRSD: 77 T: 22 QT: 393 QTc: 459 Interpretive Statements SINUS RHYTHM LOW QRS VOLTAGE IN PRECORDIAL LEADS [QRS DEFLECTION < 1.0 mV IN CHEST LEADS] NONSPECIFIC T-WAVE ABNORMALITY No previous ECG available for comparison Electronically Signed On 07-05-2025 08:58:06 CDT by Ramana Jo M.D. [email or web address]
[2025-07-03 13:32] LABS: ABG PCO2 42.1 mmHg (35-45); ABG PH Result 7.45 (7.35-7.45); Alveolar-Arterial Oxygen Gradi 3.4 mmHg (5-10); Arterial Blood Gas Hematocrit 41.2 % (37-47); Blood Gas Allen Test Pos; Blood Gas Operator Identificat WALCI; Blood Gas Sample Site Radial, left; Blood Gas Sample Type Arterial; Carboxyhemoglobin 1.4 %THgb (0.4-20.1); Glucose Level-ABG 234.0 mg/dL (70-115); HCO3 ABG 29.1 mmol/L (22-26); Ionized Calcium Level - ABG 1.2 mmol/L (1.1-1.4); Methemoglobin 0.2 % (0.4-1.5); Oxygen Saturation ABG 95.8; PO2 ABG 70.8 mmHg (80.0-100.0); PO2 FiO2 Ratio Arterial Blood 337; Potassium Level - ABG 3.5 mmol/L (3.5-5.0); Sodium Level - ABG 141.0 mmol/L (131-143)
--- OUTSIDE RECORDS SUMMARY | 2025-07-03 13:54 | XMS_ITS | Encounter Summary ---
Author Organization [facility] Address [address] [place] [address] Care Team Providers Care Patcher Bowling Ball Name Role Phone Alexander Marie MD Primary Care Provider [phone] Encounter Details Date Type Department Care Team (Late st Contact Info) Description 05/04/2011 Ancillary Orders [facility] Mobile MRI [address] [place] [address] Francisco Rogers MD Optic atrophy Social History Tobacco Use Types Packs/Day Years Used Date Smoking Tobacco: Never Assessed Comments Unknown Sex and Gender Information Value Date Recorded Sex Assigned at Not on file 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 Mild scattered punctiform white matter T2 hyperintensities underlying. Orbits show right optic nerve atrophy in relation to the left. Ocular globes and intraorbital structures are otherwise normal. No mass or infiltrative process. elías 0857 AM - uploaded from [employer]- Narrative 05/04/2011 10:59 AM CDT Exam: MRI ORBITS W WO CONTRAST Date/Time of Exam: May 01, 2011 02:15:00 PM Reason For Exam: OPTIC ATROPHY. Technique: MRI of the orbits was performed prior to and following the administration of intravenous contrast. Contrast: 15 mL [employer]. Findings: Midline structures are within normal limits. Ventricles are nondilated. Cortical volume is maintained. Mild scattered punctiform white matter T2 hyperintensities underlying. No evidence of infarct, mass lesion or hemorrhage. Major intracranial arterial flow voids are maintained. Paranasal sinuses and temporal bones are unremarkable. Dedicated thin section images through the orbits show no mass or infiltrative process. Ocular globes and extraocular muscles are normal and symmetric. There is decreased size of the right post chiasmatic optic nerve diffusely in relation to the left. There is no abnormal enhancement. Procedure Note Serjio Bush, DO - 05/04/2011 Exam: MRI ORBITS W WO CONTRAST Date/Time of Exam: May 01, 2011 02:15:00 PM Reason For Exam: OPTIC ATROPHY. Technique: MRI of the orbits was performed prior to and following the administration of intravenous contrast. Contrast: 15 mL [employer]. Findings: Midline structures are within normal limits. Ventricles are nondilated. Cortical volume is maintained. Mild scattered punctiform white matter T2 hyperintensities underlying. No evidence of infarct, mass lesion or hemorrhage. Major intracranial arterial flow voids are maintained. Paranasal sinuses and temporal bones are unremarkable. Dedicated thin section images through the orbits show no mass or infiltrative process. Ocular globes and extraocular muscles are normal and symmetric. There is decreased size of the right post chiasmatic optic nerve diffusely in relation to the left. There is no abnormal enhancement. IMPRESSION Impression: Grossly normal brain for age. Mild scattered punctiform white matter T2 hyperintensities underlying. Orbits show right optic nerve atrophy in relation to the left. Ocular globes and intraorbital structures are otherwise normal. No mass or infiltrative process. elías 0857 AM - uploaded from [employer]- External Provider [facility] MR ORDERABLES Final Resu lt documented in this encounter Visit Diagnoses Diagnosis Optic atrophy Optic atrophy, unspecified documented in this encounter Care Teams Patcher Bowling Ball Relationship Specialty Start Date End Date Alexander Marie MD [address] [id number] PCP - General Family Practice 01/02/21 documented as of this encounter
--- OUTSIDE RECORDS SUMMARY | 2025-07-03 13:54 | XMS_ITS | Encounter Summary ---
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
--- OUTSIDE RECORDS SUMMARY | 2025-07-03 13:54 | XMS_ITS | Clinical Summary ---
Author Organization [facility] Address [address] [place] [address] Phone Care Team Providers Care Stitcher Feeder Name Role Phone Xiao Lester MD Primary Care Provider Allergies Active Allergy Reactions Criticality Noted Date Comments Atorvastatin Muscle Pain Low 07/24/2011 Codeine Hives High 05/06/2011 Penicillins Rash Low 05/06/2011 Povidone-Iodine Swelling Low 02/27/2016 Simvastatin Muscle Pain Low 07/24/2011 Lutnecr-Pko-Thk Reductase Inhibitors Muscle Pain Low 02/11/2012 Sulfamethoxazole-Trimethoprim Nausea and Vomiting Low 06/30/2022 Travoprost (Benzalkonium) Other (See Comments) 04/03/2015 Itching Medications CALCIUM CARBONATE-VITAM IN D3 ORAL Take 1,000 Int'l Units/L by mouth 2 times daily. Active cyanocobalamin (VITAMIN B-12) 1,000 mcg/mL SolutionIndicat ions:Vitamin B12 deficiency (non anemic) Inject 1 mL (1,000 mcg) by intramuscular injection every 30 days. 3 mL 4 2 Active Syringe with Needle, Disp, (BD Luer-Savita Syringe) 3 mL 25 x 1 1/2 Syringe b12 1000 mg injection IM monthly 12 Each 4 2 Active linaGLIPtin (Tradjenta) 5 mg Tablet Take 1 Tablet (5 mg) by mouth daily. DIABETES 100 Tablet 3 4 Active enalapril (VASOTEC) 2.5 mg tablet Take 1 Tablet (2.5 mg) by mouth daily. 100 Tablet 3 4 Active donepeziL (ARICEPT) 10 mg tabletIndicatio ns:Dementia without behavioral disturbance (CMS/HCC),Cogni tive impairment TAKE 1 TABLET BY MOUTH ONCE DAILY AT BEDTIME 90 Tablet 5 Active Active Problems Problem Noted Date Diagnosed Date Dementia 05/21/2022 Mixed incontinence 03/05/2022 History of 2019 novel coronavirus disease (COVID -19) 01/13/2021 OAB (overactive bladder) 01/13/2021 Vitamin D deficiency 01/13/2021 Multiple thyroid nodules 08/03/2018 Overview (01/02/2021): Added per previsit query ASHD (arteriosclerotic heart disease) 06/24/2018 Overview (01/02/2021): Mild nonobstructive as seen on angiogram 03/18/18. Old myocardial infarction 06/24/2018 Vitamin B12 deficiency (non anemic) 04/25/2018 Myalgia due to statin 04/25/2018 Takotsubo cardiomyopathy 03/25/2018 Type 2 diabetes mellitus wit hout complication, without long-term current use of insulin 01/17/2016 LTG (low tension glaucoma) left mild 04/03/2015 Bilateral pseudophakia 04/03/2015 Mixed hyperlipidemia 08/23/2011 Resolved Problems Problem Noted Date Diagnosed Date Resolved Date History of myocardial infarction 04/25/2018 01/13/2021 Congestive heart failure 03/25/201806/2021 NSTEMI (non-ST elevated myoc ardial infarction) 03/17/2018 04/25/2018 Chest pain 03/17/2018 03/25/2018 Abnormal EKG 07/30/2014 03/25/2018 Anemia 02/01/2013 03/25/2018 Thyroid cyst 07/17/2012 01/13/2021 Prediabetes 07/15/2012 01/17/2016 History of elevated glucose 05/20/2011 03/25/2018 Glaucoma 05/06/2011 06/19/2015 Essential hypertension, benign 05/06/2011 03/05/2022 Encounters Date Type Department Care Team Description 05/30/2025 Orders Only [facility] [address] [facility] [address] [place] [address] Xiao Lester MD Controlled type 2 diabetes mellitus without complication, without long-term current use of insulin ([facility]) from Last 3 Months Immunizations Immunization Administration Dates Next Due (PNEUMOVAX 23)(50 YRS UP) PN EUMOCOCCAL POLYSACCHARIDE (PPV23) 0.5 ML, IM 06/30/2022(Deferred: Other (See comments) - To be documented by administering nurse) INFLUENZA VACCINE HIGH DOSE QUADRIVALENT 65 YR UP PF IM 05/17/2023,05/21/2022 Influenza Seasonal Unspecifi ed Formulation IM 06/06/2020,05/09/2013 Influenza Vaccine Split 3+ Yrs IM 08/07/2016 Influenza Vaccine Split 3+ Yrs PF IM 07/24/2011 Family History Medical History Relation Name Comments Glaucoma Brother Heart Disease Brother Heart Disease Father Prostate Cancer Father Unknown Maternal Grandfather UNKNOWN Glaucoma Mother Heart Disease Mother Unknown Paternal Grandfather UNKNOWN Breast Cancer Neg Hx Colon Cancer Neg Hx Diabetes Neg Hx Ovarian Cancer Neg Hx Relation Name Status Comments Brother Alive Daughter NONE Father Maternal Grandfather UNKNOWN Maternal Grandmother Maternal Uncle Mother Paternal Grandfather UNKNOWN Paternal Grandmother Sister NONE Social History Tobacco Use Types Packs/Day Years Used Date Smoking Tobacco: Never Smokeless Tobacco: Never Tobacco Cessation:Counseling Given: No Alcohol Use Standard Drinks/Week Comments No 0 (1 standard drink = 0.6 oz pur e alcohol) Financial Resource Strain Answer Date R ecorded How hard is it for you to pa y for the very basics like food, housing, medical care, and heating? Patient declined 10/14/2022 Food Insecurity Answer Date Recorded In the past 12 months, have you worried that your food would run out before you had money to buy more? Patient declined 2022 In the past 12 months, did y ou run out of food and didn't have money to buy more? Patient declined 10/14/2022 Transportation Needs Answer Date Record ed In the past 12 months, has l ack of transportation kept you from medical appointments or from getting medications? Patient declined 10/14/2022 Lack of Transportation (Non-Medical) Not on file 10/14/2022 Feeling Safe Answer Date Recorded Are you in a relationship wi th someone who hurts you emotionally and/or physically? No 03/19/2023 Comments No Sex and Gender Information Value Date Recorded Sex Assigned at Not on file Legal Sex Female 5:24 AM [employer] Gender Identity Not on file Sexual Orientation Not on file Last Filed Vital Signs Vital Sign Reading Time Taken Comments Blood Pressure 127/72 02/17/2024 3:48 PM CDT Pulse 104 02/17/2024 3:48 PM CDT Temperature 36.7 C (98 F) 02/17/2024 3:48 PM CDT Respiratory Rate 16 02/17/2024 3:48 PM CDT Oxygen Saturation 99% 02/17/2024 3:48 PM CDT Inhaled Oxygen Concentration - - Weight 65.7 kg (144 lb 12.8 oz) 02/17/2024 3:48 PM CDT Height 167.6 cm (5' 6 ) 02/17/2024 3:48 PM CDT Body Mass Index 23.37 02/17/2024 3:48 PM CDT Plan of Treatment Health Maintenance Due Date Last Done Comments DTAP/TDAP/TD VACCINES (1 - Tdap) 1964 PNEUMOCOCCAL VACCINE 50+ YEA RS (1 of 2 - PCV) 1964 ZOSTER VACCINE (1 of 2) 1995 RSV VACCINE (60+ or ) (1 - 1-dose 75+ series) 2020 OSTEOPOROSIS SCREENING 02/03/2021 02/04/2016, 2015 DIABETES ANNUAL FOOT EXAM 05/21/2023 05/21/2022, DIABETES: A1C (Auto Order) 05/19/202402/16, 03/25/2023, 10/14/2022, Additional history exists DIABETES HBA1C Q 6 MONTHS 08/18/20242023, 03/25/2023, 10/14/2022, Additional history exists KHE eGFR (Auto Order) 09/06/2024 02/18/2024 , 03/25/2023, 03/19/2023, Additional history exists KHE uACR (Auto Order) 09/06/2024 02/17/2024 , 05/17/2023, 03/05/2022, Additional history exists Medicare Advantage ([place]) Preventative Visit/Annual Wellness Visit 09/06/2024 02/17/2024, 10/14/2022, 03/05/2022 DIABETES MICROALBUMIN ANNUAL SCREEN 02/16/2025 02/17/2024, 05/17/2023, 03/05/2022, Additional history exists LDL CHOLESTEROL ANNUAL 02/17/2025 4, 10/14/2022, 03/05/2022, Additional history exists INFLUENZA VACCINE (#1) 2025 3, 05/21/2022, 06/06/2020, Additional history exists DIABETES ANNUAL RETINAL EXAM 07/07/202509/2023, 05/05/2023, 05/20/2018, Additional history exists Procedures Procedure Name Priority Date/Time Associated Diagnosis Comments DIABETES EYE EXAM Routine 07/07/2024 1:09 PM CDT COMPREHENSIVE METABOLIC PANEL Routine 02/18/2024 7:49 AM CDT Controlled type 2 diabetes mellitus without complication, without long-term current use of insulin ([facility]) LIPID PANEL Routine 02/18/2024 7:49 AM CDT Controlled type 2 diabetes mellitus without complication, without long-term current use of insulin ([facility]) HEMOGLOBIN A1C Routine 02/17/2024 4:39 PM CDT Controlled type 2 diabetes mellitus without complication, without long-term current use of insulin (CMS/[facility]) MICROALBUMIN/CREATININ E RATIO, RANDOM UR Routine 02/17/2024 4:38 PM CDT Controlled type 2 diabetes mellitus without complication, without long-term current use of insulin (CMS/[facility]) XR DEXA BONE DENSITY AXIAL 1 OR MORE SITES Routine 02/04/2016 1:14 PM CDT Postmenopausal from Last 3 Months or Most Recently Relevant to Health Maintenance Results * DIABETES EYE EXAM (07/07/2024 1:09 PM CDT) us Abstract Provider HEALTH MAINTENANCE Edited Resu lt - Final * (ABNORMAL) LIPID PANEL (02/18/2024 7:49 AM CDT) CHOLESTEROL 357(H) <200 mg/dL [facility] [place] HDL 32(L) > OR = 50 mg/dL [facility] [place] TRIGLYCERIDE 547(H) <150 mg/dL [facility] [place] Comment: If a non-fasting specimen was collected, consider repeat triglyceride testing on a fasting specimen if clinically indicated. Nix et al. J. of Clin. Lipidol. 2015;9:129-169. There is increased risk of pancreatitis when the triglyceride concentration is very high (> or = 500 mg/dL, especially if > or = 1000 mg/dL). Nix et al. J. of Clin. Lipidol. 2015;9:129-169. LDL CALCULATED mg/dL (calc) [facility] [place] Comment: LDL cholesterol not calculated. Triglyceride levels greater than 400 mg/dL invalidate calculated LDL results. Reference range: <100 Desirable range <100 mg/dL for primary prevention; <70 mg/dL for patients with CHD or diabetic patients with > or = 2 CHD risk factors. LDL-C is now calculated using the Rony-Grier calculation, which is a validated novel method providing better accuracy than the Friedewald equation in the estimation of LDL-C. Rony SS et al. CARLEE. 2013;310(19): 3758-1710 (http://education.iFulfillment.[employer]/faq/PKN569) CHOL/HDL RATIO 11.2(H) <5.0 (calc) [facility] [place] NON-HDL CHOLESTEROL 325(H) <130 mg/dL (calc) [facility] [place] Comment: Non-HDL level > or = 220 is very high and may indicate genetic familial hypercholesterolemia (FH). Clinical assessment and measurement of blood lipid levels should be considered for all first-degree relatives of patients with an FH diagnosis. For patients with diabetes plus 1 major ASCVD risk factor, treating to a non-HDL-C goal of <100 mg/dL (LDL-C of <70 mg/dL) is considered a therapeutic option. Test Performed at: [facility] [address] [place] [address] Renu Soto MD Blood 02/18/2024 7:49 AM CDT 02/19/2024 6:07 AM CDT us Xiao Lester MD CHEMISTRY ORDERABLES Final Result [facility] [phone] [facility] [address] [place] [address] * (ABNORMAL) COMPREHENSIVE METABOLIC PANEL (02/18/2024 7:49 AM CDT) GLUCOSE 388(H) 65 - 99 mg/dL [facility] Comment: Fasting reference interval For someone without known diabetes, a glucose value >125 mg/dL indicates that they may have diabetes and this should be confirmed with a follow-up test. BUN 13 7 - 25 mg/dL [facility] CREATININE 0.95 0.60 - 1.00 mg/dL [facility] GFR 61 > OR = 60 mL/min/1. 73m2 [facility] BUN/CREAT RATIO SEE NOTE: 6 - 22 (calc) [facility] Comment: Not Reported: BUN and Creatinine are within reference range. SODIUM 138 135 - 146 mmol/L [facility] POTASSIUM 3.9 3.5 - 5.3 mmol/L [facility] CHLORIDE 98 98 - 110 mmol/L [facility] CO2 28 20 - 32 mmol/L [facility] CALCIUM 9.4 8.6 - 10.4 mg/dL [facility] TOTAL PROTEIN 6.7 6.1 - 8.1 g/dL [facility] ALBUMIN 4.0 3.6 - 5.1 g/dL [facility] GLOBULIN 2.7 1.9 - 3.7 g/dL (calc) [facility] ALBUMIN/GLOBULIN RATIO 1.5 1.0 - 2.5 (calc) [facility] BILIRUBIN TOTAL 0.6 0.2 - 1.2 mg/dL [facility] ALKALINE PHOSPHATASE 102 37 - 153 U/L [facility] AST 18 10 - 35 U/L [facility] ALT 21 6 - 29 U/L [facility] Comment: Test Performed at: [facility] [address] [address] Renu Soto MD Blood 02/18/2024 7:49 AM CDT 02/19/2024 6:07 AM CDT Xiao Lester MD CHEMISTRY ORDERABLES Final Result [facility] [phone] [facility] [address] [address] * (ABNORMAL) HEMOGLOBIN A1C (02/17/2024 4:39 PM CDT) HEMOGLOBIN A1C 9.9(H) <5.7 % of total Hgb [facility] Comment: For someone without known diabetes, a hemoglobin A1c value of 6.5% or greater indicates that they may have diabetes and this should be confirmed with a follow-up test. For someone with known diabetes, a value <7% indicates that their diabetes is well controlled and a value greater than or equal to 7% indicates suboptimal control. A1c targets should be individualized based on duration of diabetes, age, comorbid conditions, and other considerations. Currently, no consensus exists regarding use of hemoglobin A1c for diagnosis of diabetes for children. ESTIMATED AVERAGE GLUCOSE (MG/DL) 237 mg/dL [facility] ESTIMATED AVERAGE GLUCOSE (MMOL/L) 13.2 mmol/L [facility] Comment: This test was performed on the Shruthi gretta c503 platform. Effective 11/22/23, a change in test platforms from the Feng Lead Burner to the Shruthi gretta c503 may have shifted HbA1c results compared to historical results. Based on laboratory validation testing conducted at [facility], the Shruthi platform relative to the Feng platform had an average increase in HbA1c value of < or = 0.3%. This difference is within accepted variability established by the National Glycohemoglobin Standardization Program. Note that not all individuals will have had a shift in their results and direct comparisons between historical and current results for testing conducted on different platforms is not recommended. Test Performed at: [facility] [address] [facility] [place] [address] Renu Soto MD Blood 02/17/2024 4:39 PM CDT 02/19/2024 6:08 AM CDT us Xiao Lester MD CHEMISTRY ORDERABLES Final Result Performing Organization Address [facility]/ZIP Co de Phone Number [facility] [phone] [facility] [address] [place] [address] [place] [address] * MICROALBUMIN/CREATININE RATIO, RANDOM UR (02/17/2024 4:38 PM CDT) Pathologist [facility] Creatinine, Urine 80 20 - 275 mg/dL [facility] MICROALBUMIN, URINE 1.5 See Note: mg/dL [facility] Comment: Reference Range: Reference Range Not established MICROALBUMIN/CREAT RATIO, UR 19 <30 mg/g creat [facility] Comment: The ADA defines abnormalities in albumin excretion as follows: Albuminuria Category Result (mg/g creatinine) Normal to Mildly increased <30 Moderately increased 30-299 Severely increased > OR = 300 The ADA recommends that at least two of three specimens collected within a 3-6 month period be abnormal before considering a patient to be within a diagnostic category. Test Performed at: [facility] [address] [facility] [place] [address] Renu Soto MD Urine URINE SPECIMEN OBTAINED BY CLEAN CATCH PROCEDURE / Unknown 02/17/2024 4:38 PM CDT 02/19/2024 6:15 AM CDT Xiao Lester MD URINE ORDERABLES Final Resu lt Performing Organization Address City/[facility]/ZIP Co de Phone Number [facility] [phone] [facility] [place] [address] * XR DEXA BONE DENSITY AXIAL 1 OR MORE SITES (02/04/2016 1:14 PM CDT) Anatomical Region Laterality Modality Other Impressions 02/04/2016 3:28 PM CDT 1. Bony osteopenia. Fracture risk is increased. [id number] Narrative 02/04/2016 3:28 PM CDT Exam: XR DEXA BONE DENSITY AXIAL 1 OR MORE SITES Date/Time of Exam: 02/04/2016 1:14 PM Reason For Exam: Postmenopausal. Findings: Bone mineral density is 0.841 g/sq cm with a T score -1.6 and a Z score of 0.3. This classifies as bony osteopenia according to the World Health Organization. Procedure Note Shaheen López, DO - 12/09/2021 Exam: XR DEXA BONE DENSITY AXIAL 1 OR MORE SITES Date/Time of Exam: 02/04/2016 1:14 PM Reason For Exam: Postmenopausal. Findings: Bone mineral density is 0.841 g/sq cm with a T score -1.6 and a Z score of 0.3. This classifies as bony osteopenia according to the World Health Organization. IMPRESSION 1. Bony osteopenia. Fracture risk is increased. [id number] Toña Aguirre FRENCH TRANSLATOR DIAGNOSTIC IMAGING ORDBerna EASON Final Result from Last 3 Months or Most Recently Relevant to Health Maintenance Insurance [address] [place] [id number] [facility] [id number] * Guarantor: SAGAR RIDLEY Account Type Relation to Patient Date of Phone Billing Address Personal/Family [address] [place] [address] [employer] Member Subscriber Plan / Payer (Ef fective 2016-Present) Name:Sagar Ridley Relation to Subscriber:Self Name:Sagar Ridley Payer ID:Not on file Group ID:[id number] Type:RX Medicare Part D Address: [place] [employer] [facility] Care Teams Stitcher Feeder Relationship Specialty Start Date End Date Xiao Lester MD [address] [address] PCP - General Family Practice 03/19/23
--- OUTSIDE RECORDS SUMMARY | 2025-07-03 13:54 | XMS_ITS | Encounter Summary ---
Author Organization [facility] Address [address] [place] [address] Care Team Providers Care U.[place]. Senator Name Role Phone Alexander Marie MD Primary Care Provider [phone] [phone] Reason for Referral * Radiology Services (Routine) - Closed Specialty Diagnoses / Procedures Referred By Lul conley Referred To Contact Radiology Diagnoses Takatsuki syndrome Procedures ECHOCARDIOGRAM W/ CONTRAST AGENT ECHO COMPLETE Cheyenne Valdes NP Phone: tel: fax: [facility] Echo [place] [address] [place] [address] Phone: tel: fax: Referral ID Status Reason Start Date Expiration Date Visits Requested Visits Authorized [id number] Closed Interventional Scheduling (SGF) 06/09/2018 07/10/2019 1 1 Encounter Details Date Type Department Care Team (Late st Contact Info) Description 06/20/2018 Ancillary Orders [facility] Cardiology- [place] [address] [place] [address] Cheyenne Valdes NP [address] [place] [address] Takatsuki syndrome Social History Tobacco Use Types Packs/Day Years Used Date Smoking Tobacco: Never Smokeless Tobacco: Never Alcohol Use Standard Drinks/Week Comments No 0 (1 standard drink = 0.6 oz pur e alcohol) Comments No Sex and Gender Information Value Date Recorded Sex Assigned at Not on file 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 Gender Identity Not on file Sexual Orientation Not on file Occupation Industry Job Start Date Job End Date Not on file Not on file Not on file Not on file documented as of this encounter Plan of Treatment Not on file documented as of this encounter Results * ECHOCARDIOGRAM W/ CONTRAST AGENT (06/20/2018 2:39 PM CDT) EJECTION FRACTION INTERFACE SYSTEM 06/20/2018 1:38 PM CDT Narrative INTERFACE SYSTEM - 06/20/2018 5:08 PM CDT [facility] Echocardiography-[address] [address] Transthoracic Echocardiography Patient: Khai Study ECHO COMPLETE G[place]on K ID: Gender: F : 1945 Age: 73 Room: Study 06/20/2018 Pt Outpatient Date: Status: Study 01:38:01 PM CSN #: [id number] Time: Ordering:Cheyenne Valdes Interpreting:Blayne Winter MD Fire Investigation Manager: Loyda Pastrana [facility] Indications and History: 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 Risk factors: Family history of coronary artery disease. Diabetes mellitus. Labs, prior tests, procedures, and surgery: Echocardiography (03/19/2018). Catheterization (03/18/2018). Summary and Conclusion: - Left ventricle: The cavity size was normal. Wall thickness was at the upper limits of normal. Systolic function was normal. The visually estimated ejection fraction was in the range of 55% to 60%. Images were inadequate for LV wall motion assessment. Diastolic function is indeterminate. - Right ventricle: The cavity size was normal. Systolic function was normal. - Aortic valve: Not well visualized. There was no stenosis. - Mitral valve: Not well visualized. Mobility was not restricted. - Tricuspid valve: Not well visualized. Mobility was not restricted. Impressions: Technically difficult images. Comparison: Compared to the previous report, LV systolic function has improved. Procedure information: Study status: Routine. Procedure: Initial setup. Intravenous access was obtained. Transthoracic echocardiography. Image quality was adequate. The study was technically difficult. Scanning was performed from the parasternal, apical, subcostal, and suprasternal notch acoustic windows. Intravenous contrast (Definity) was administered to opacify the LV. There were no complications. There were no contrast reactions. Patient was monitored per protocol. Study components: M-mode, 2D, complete spectral Doppler, and color Doppler. Height: 167.6cm. Height: 66in. Weight: 66.7kg. Weight: 146.7lb. BMI: 23.7kg/m\S\2. BSA: 1.77m\S\2. Blood pressure: 108/68 Study date: 06/20/2018. Study time: 01:38 PM. Location: Echo laboratory. Cardiac Anatomy: LEFT VENTRICLE: The cavity size was normal. Wall thickness was at the upper limits of normal. Systolic function was normal. The visually estimated ejection fraction was in the range of 55% to 60%. Images were inadequate for LV wall motion assessment. Diastolic function is indeterminate. RIGHT VENTRICLE: The cavity size was normal. Systolic function was normal. LEFT ATRIUM: The atrium was normal in size. RIGHT ATRIUM: The atrium was normal in size. ATRIAL SEPTUM: Not well visualized. AORTIC VALVE: Not well visualized. Mobility was not restricted. Doppler: There was no stenosis. No significant regurgitation. Peak velocity ratio of LVOT to aortic valve: 0.78. Peak gradient (S): 10mm Hg. MITRAL VALVE: Not well visualized. Mobility was not restricted. No echocardiographic evidence for prolapse. Doppler: There was no evidence for stenosis. No significant regurgitation. Valve area by pressure half-time: 3.26cm\S\2. Indexed valve area by pressure half-time: 1.84cm\S\2/m\S\2. Peak gradient (D): 3mm Hg. TRICUSPID VALVE: Not well visualized. Mobility was not restricted. Doppler: There was no evidence for stenosis. No significant regurgitation. PULMONIC VALVE: Not well visualized. Doppler: There was no evidence for stenosis. Trivial regurgitation. PERICARDIUM: A minimal pericardial effusion and/or fat pad was identified. AORTA: The aorta was not well visualized. Aortic root: The aortic root was normal in size. SYSTEMIC VEINS: Inferior vena cava: Not well visualized. 2D measurements Doppler measurements Left ventricle Left ventricle LVID ED, PLAX 4.4 cm IVRT 87 ms LVID ES, PLAX 2.5 cm E', lat tamara, TDI 5 cm/sec FS, 43 % E/e', lat tamara, 18 endocardial, TDI PLAX E', med tamara, TDI 5 cm/sec FS, PLAX chord 43 % E/e', med tamara, 17 LVPW, ED 1.2 cm TDI IVS/LVPW ratio, 0.87 E', avg, TDI 5 cm/sec ED E/e', avg, TDI 18 Vol, ED 88 ml LVOT Vol, ES 23 ml Peak josue, S 120.76 cm/sec Qs 4.7 L/min Peak gradient, S 6 mm Hg Vol/bsa, ED 50 ml/m\S\2 Aortic valve Vol/bsa, ES 13 ml/m\S\2 Peak josue, S 155.47 cm/sec Qs/bsa 2.7 L/(min-m\S\2) Peak gradient, S 10 mm Hg Vol, ES, 1-p 52 ml Peak josue ratio, 0.78 A2C LVOT/AV EF, 1-p A2C 76 % Mitral valve Stroke vol, 1-p 65 ml Peak E josue 89.83 cm/sec A2C Peak A josue 106.94 cm/sec SV, 1-p A4C 50 ml Deceleration 233 ms SV/bsa, 1-p A4C 28 ml/m\S\2 time SV, 2-p 51 ml Pressure 68 ms SV/bsa, 2-p 29.1 ml/m\S\2 half-time Ventricular septum Peak gradient, D 3 mm Hg IVS, ED 1.0 cm Peak E/A ratio 0.84 Left atrium Area (PHT) 3.26 cm\S\2 AP dim 2.8 cm Area/bsa (PHT) 1.84 cm\S\2/m\S\2 AP dim index 1.6 cm/m\S\2 SI dim, A4C 5.3 cm Other echo measurements Vol, ES, 1-p 45 ml Other A4C Vol/bsa, ES, 26 ml/m\S\2 1-p A4C Vol, ES, 1-p 52 ml A2C Vol/bsa, ES, 30 ml/m\S\2 1-p A2C Vol, ES, 2-p 50 ml Vol/bsa, ES, 28 ml/m\S\2 2-p Right atrium SI dim, ES, A4C 5.1 cm Right ventricle RVID ED, PLAX 1.8 cm [facility] Labs are accredited with the [facility] Accreditation Commission - Echocardiography. Prepared and Electronically Authenticated Blayne Winter MD Confirmed 06/20/2018 17:08 Procedure Note Blayne Winter MD - 06/20/2018 [facility] Echocardi[facility]-[place] [address] [facility] [address] [place] [address] Transthoracic Echocardiography Patient: Khai Study ECHO COMPLETE Yovana K ID: Gender: F : 1945 Age: 73 Room: Study 06/20/2018 Pt Outpatient Date: Status: Study 01:38:01 PM CSN #: [id number] Time: Ordering:Cheyenne Valdes Interpreting:Blayne Winter MD Fire Investigation Manager: Loyda Pastrana [facility] Indications and History: 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 Risk factors: Family history of coronary artery disease. Diabetes mellitus. Labs, prior tests, procedures, and surgery: Echocardiography (03/19/2018). Catheterization (03/18/2018). Summary and Conclusion: - Left ventricle: The cavity size was normal. Wall thickness was at the upper limits of normal. Systolic function was normal. The visually estimated ejection fraction was in the range of 55% to 60%. Images were inadequate for LV wall motion assessment. Diastolic function is indeterminate. - Right ventricle: The cavity size was normal. Systolic function was normal. - Aortic valve: Not well visualized. There was no stenosis. - Mitral valve: Not well visualized. Mobility was not restricted. - Tricuspid valve: Not well visualized. Mobility was not restricted. Impressions: Technically difficult images. Comparison: Compared to the previous report, LV systolic function has improved. Procedure information: Study status: Routine. Procedure: Initial setup. Intravenous access was obtained. Transthoracic echocardiography. Image quality was adequate. The study was technically difficult. Scanning was performed from the parasternal, apical, subcostal, and suprasternal notch acoustic windows. Intravenous contrast (Definity) was administered to opacify the LV. There were no complications. There were no contrast reactions. Patient was monitored per protocol. Study components: M-mode, 2D, complete spectral Doppler, and color Doppler. Height: 167.6cm. Height: 66in. Weight: 66.7kg. Weight: 146.7lb. BMI: 23.7kg/m\S\2. BSA: 1.77m\S\2. Blood pressure: 108/68 Study date: 06/20/2018. Study time: 01:38 PM. Location: Echo laboratory. Cardiac Anatomy: LEFT VENTRICLE: The cavity size was normal. Wall thickness was at the upper limits of normal. Systolic function was normal. The visually estimated ejection fraction was in the range of 55% to 60%. Images were inadequate for LV wall motion assessment. Diastolic function is indeterminate. RIGHT VENTRICLE: The cavity size was normal. Systolic function was normal. LEFT ATRIUM: The atrium was normal in size. RIGHT ATRIUM: The atrium was normal in size. ATRIAL SEPTUM: Not well visualized. AORTIC VALVE: Not well visualized. Mobility was not restricted. Doppler: There was no stenosis. No significant regurgitation. Peak velocity ratio of LVOT to aortic valve: 0.78. Peak gradient (S): 10mm Hg. MITRAL VALVE: Not well visualized. Mobility was not restricted. No echocardiographic evidence for prolapse. Doppler: There was no evidence for stenosis. No significant regurgitation. Valve area by pressure half-time: 3.26cm\S\2. Indexed valve area by pressure half-time: 1.84cm\S\2/m\S\2. Peak gradient (D): 3mm Hg. TRICUSPID VALVE: Not well visualized. Mobility was not restricted. Doppler: There was no evidence for stenosis. No significant regurgitation. PULMONIC VALVE: Not well visualized. Doppler: There was no evidence for stenosis. Trivial regurgitation. PERICARDIUM: A minimal pericardial effusion and/or fat pad was identified. AORTA: The aorta was not well visualized. Aortic root: The aortic root was normal in size. SYSTEMIC VEINS: Inferior vena cava: Not well visualized. 2D measurements Doppler measurements Left ventricle Left ventricle LVID ED, PLAX 4.4 cm IVRT 87 ms LVID ES, PLAX 2.5 cm E', lat tamara, TDI 5 cm/sec FS, 43 % E/e', lat tamara, 18 endocardial, TDI PLAX E', med tamara, TDI 5 cm/sec FS, PLAX chord 43 % E/e', med tamara, 17 LVPW, ED 1.2 cm TDI IVS/LVPW ratio, 0.87 E', avg, TDI 5 cm/sec ED E/e', avg, TDI 18 Vol, ED 88 ml LVOT Vol, ES 23 ml Peak josue, S 120.76 cm/sec Qs 4.7 L/min Peak gradient, S 6 mm Hg Vol/bsa, ED 50 ml/m\S\2 Aortic valve Vol/bsa, ES 13 ml/m\S\2 Peak josue, S 155.47 cm/sec Qs/bsa 2.7 L/(min-m\S\2) Peak gradient, S 10 mm Hg Vol, ES, 1-p 52 ml Peak josue ratio, 0.78 A2C LVOT/AV EF, 1-p A2C 76 % Mitral valve Stroke vol, 1-p 65 ml Peak E josue 89.83 cm/sec A2C Peak A josue 106.94 cm/sec SV, 1-p A4C 50 ml Deceleration 233 ms SV/bsa, 1-p A4C 28 ml/m\S\2 time SV, 2-p 51 ml Pressure 68 ms SV/bsa, 2-p 29.1 ml/m\S\2 half-time Ventricular septum Peak gradient, D 3 mm Hg IVS, ED 1.0 cm Peak E/A ratio 0.84 Left atrium Area (PHT) 3.26 cm\S\2 AP dim 2.8 cm Area/bsa (PHT) 1.84 cm\S\2/m\S\2 AP dim index 1.6 cm/m\S\2 SI dim, A4C 5.3 cm Other echo measurements Vol, ES, 1-p 45 ml Other A4C Vol/bsa, ES, 26 ml/m\S\2 1-p A4C Vol, ES, 1-p 52 ml A2C Vol/bsa, ES, 30 ml/m\S\2 1-p A2C Vol, ES, 2-p 50 ml Vol/bsa, ES, 28 ml/m\S\2 2-p Right atrium SI dim, ES, A4C 5.1 cm Right ventricle RVID ED, PLAX 1.8 cm [facility] are accredited with the [facility] Accreditation Commission - Echocardiography. 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 Senator Relationship Specialty Start Date End Date Alexander Marie MD [address] [address] PCP - General Family Practice 01/02/21 documented as of this encounter
--- OUTSIDE RECORDS SUMMARY | 2025-07-03 13:55 | XMS_ITS | Encounter Summary ---
Author Organization [facility] Address [address] [place] [address] Care Team Providers Care Advance Scout Name Role Phone Alexander Marie MD Primary Care Provider [phone] Reason for Referral * Outpatient Services (Routine) - Closed Specialty Diagnoses / Procedures Referred By Lul conley Referred To Contact Diagnoses Inconclusive mammogram Procedures MAMMO BREAST US BILAT LTD Xiao Lester MD [address] [address] Phone: tel: fax: [facility] Pre-Registration [place] CALL TO MAKE APPOINTMENT ONLY [address] [place] [address] Phone: tel: fax: Referral ID Status Reason Start Date Expiration Date Visits Re quested Visits Authorized [id number] Closed 02/06/2016 03/08/2017 1 1 * Outpatient Services (Routine) - Closed Specialty Diagnoses / Procedures Referred By Lul conley Referred To Contact Diagnoses Inconclusive mammogram Procedures MAMMO DIGITAL DIAG BILAT Xiao Lester MD [address] [address] Phone: tel: fax: Referral ID Status Reason Start Date Expiration Date Visits Re quested Visits Authorized [id number] Closed 02/06/2016 03/08/2017 1 1 Encounter Details Date Type Department Care Team (Latest Contact Info) Description 02/06/2016 Ancillary Orders [facility] [place] [facility] [place] [address] [facility] [address] [place] [address] Xiao Lester MD [address] [place] [id number] Inconclusive mammogram (Primary Dx) Social History Tobacco Use Types Packs/Day Years Used Date Smoking Tobacco: Never Smokeless Tobacco: Never Alcohol Use Standard Drinks/Week Comments No 0 (1 standard drink = 0.6 oz pur e alcohol) Comments No Sex and Gender Information Value Date Recorded Sex Assigned at Not on file 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 Patient received a result/recommendation letter. [id number] Narrative 02/28/2016 11:03 AM CDT Bilateral Additional Views and Bilateral Ultrasound 02/27/2016 The patient had a screening on 02/04/2016 and there are no prior exams available. Apparently they have been purged. Right craniocaudal and bilateral true lateral views are obtained and supplemented with right axillary tail view and spot compression views in both craniocaudal and the left oblique projections and a right true lateral magnified view was obtained. There is nodular tissue asymmetry deep in the upper outer quadrant on the right at 10-11 o'clock position which has a benign appearance. On the left, there is a questionable oval nodule in the subareolar region at 3 o'clock measuring 7 x 12 mm. Bilateral Breast Ultrasound: Ultrasound of the upper outer quadrant on the right shows no discrete or suspicious findings. On the left, there is an unusual appearing mass seen at the 3-1 position which is measuring 6 x 16 x 8 mm. It is slightly ill-defined with a partial hyperechoic rim. It is hypoechoic in its periphery and more isoechoic in the central area and has an appearance reminiscent of a lymph node but it does not have a mammographic appearance of a lymph node and it is in the subareolar region which would be an unusual location for a lymph node. Therefore, I would recommend left ultrasound-guided needle core biopsy for tissue diagnosis. After the ultrasound, I visited with the patient and explained the findings and my recommendation and the patient indicated her understanding and her willingness to undergo the biopsy. She was seen by our biopsy coordinator today in order to be scheduled to have that procedure on another day. us Xiao Lester MD MAMMO ORDERABLES Final Resu lt * (ABNORMAL) MAMMO DIGITAL DIAG BILAT (02/27/2016 2:30 PM CDT) Anatomical Region Laterality Modality Breast Bilateral Mammography 02/27/2016 2:31 PM CDT Impressions 02/28/2016 11:03 AM CDT IMPRESSION: I would recommend left breast ultrasound guided needle core biopsy as described above. Patient received a result/recommendation letter. [id number] Narrative 02/28/2016 11:03 AM CDT Bilateral Additional Views and Bilateral Ultrasound 02/27/2016 The patient had a screening on 02/04/2016 and there are no prior exams available. Apparently they have been purged. Right craniocaudal and bilateral true lateral views are obtained and supplemented with right axillary tail view and spot compression views in both craniocaudal and the left oblique projections and a right true lateral magnified view was obtained. There is nodular tissue asymmetry deep in the upper outer quadrant on the right at 10-11 o'clock position which has a benign appearance. On the left, there is a questionable oval nodule in the subareolar region at 3 o'clock measuring 7 x 12 mm. Bilateral Breast Ultrasound: Ultrasound of the upper outer quadrant on the right shows no discrete or suspicious findings. On the left, there is an unusual appearing mass seen at the 3-1 position which is measuring 6 x 16 x 8 mm. It is slightly ill-defined with a partial hyperechoic rim. It is hypoechoic in its periphery and more isoechoic in the central area and has an appearance reminiscent of a lymph node but it does not have a mammographic appearance of a lymph node and it is in the subareolar region which would be an unusual location for a lymph node. Therefore, I would recommend left ultrasound-guided needle core biopsy for tissue diagnosis. After the ultrasound, I visited with the patient and explained the findings and my recommendation and the patient indicated her understanding and her willingness to undergo the biopsy. She was seen by our biopsy coordinator today in order to be scheduled to have that procedure on another day. us Xiao Lester MD MAMMO ORDERABLES Final Resu lt documented in this encounter Visit Diagnoses Diagnosis Inconclusive mammogram- Primary Inconclusive mammogram Inconclusive mammogram documented in this encounter Care Teams Advance Scout Relationship Specialty Start Date End Date Alexander Marie MD [address] [id number] PCP - General Family Practice 01/02/21 documented as of this encounter
--- OUTSIDE RECORDS SUMMARY | 2025-07-03 13:55 | XMS_ITS | Clinical Summary ---
Author Organization [facility] Address [address] [place] [address] Phone Care Team Providers Care Lath Hand Name Role Phone Alexander Marie MD Primary Care Provider [phone] Allergies Active Allergy Reactions Criticality Noted Date Comments Atorvastatin Muscle Pain Low 07/24/2011 Codeine Hives High 05/06/2011 Penicillins Rash Low 05/06/2011 Povidone-Iodine Swelling Low 02/27/2016 Simvastatin Muscle Pain Low 07/24/2011 Ocmzcru-Wky-Hje Reductase Inhibitors Muscle Pain Low 02/11/2012 Travoprost (Benzalkonium) Other (See Comments) 04/03/2015 Itching Medications brimonidine-timol ol (COMBIGAN) 0.2-0.5 % OP solution 1 Drop every 12 hours. Both eyes Active dorzolamide (TRUSOPT) 2 % OP solution 1 Drop 3 times daily. Each eye. Active nitroglycerin (NITROSTAT) 0.4 mg Tablet, Sublingual Place 1 Tab under tongue every 5 minutes as needed for Chest Pain. 25 Tab 3 4 Active Fish Oil-Ephraim-3 Fatty Acids 300-500 mg Capsule Take by mouth. Activ e brinzolamide (AZOPT) 1 % suspension 1 Drop every 8 hours. Active aspirin (CARMEN CHEWABLE) 81 mg Tablet, Chewable Take 1 Tablet (81 mg) by mouth daily with breakfast. 30 Tablet 1 03/20/2018 1:50 PM CDT 8 Active fluticasone (FLONASE) 50 mcg/spray [place], SuspensionIndicat ions:Acute non-recurrent pansinusitis Administer 2 Sprays in each nostril daily. 16 Gram 1 8 Active ergocalciferol (VITAMIN D2) 50,000 unit capsule Take 50,000 Units by mouth every 7 days. Active oxybutynin chloride (DITROPAN) 5 mg tablet Take 5 mg by mouth daily. Active glimepiride (AMARYL) 1 mg tabletIndications :Type 2 diabetes mellitus without complication, without long-term current use of insulin Take 1 Tablet (1 mg) by mouth daily with breakfast. 90 Tablet 4 1 Active Active Problems Problem Noted Date Diagnosed Date History of 2019 novel coronavirus disease (COVID -19) 01/13/2021 OAB (overactive bladder) 01/13/2021 Vitamin D deficiency 01/13/2021 Multiple thyroid nodules 08/03/2018 Overview (08/03/2018): Added per previsit query ASHD (arteriosclerotic heart disease) 06/24/2018 Overview (06/24/2018): Mild nonobstructive as seen on angiogram 03/18/18. Old myocardial infarction 06/24/2018 Myalgia due to statin 04/25/2018 Vitamin B12 deficiency (non anemic) 04/25/2018 Takotsubo cardiomyopathy 03/25/2018 Type 2 diabetes mellitus wit hout complication, without long-term current use of insulin 01/17/2016 LTG (low tension glaucoma) right severe 04/03/20 15 Bilateral pseudophakia 04/03/2015 LTG (low tension glaucoma) left mild 04/03/2015 Mixed hyperlipidemia 08/23/2011 Essential hypertension, benign 05/06/2011 Resolved Problems Problem Noted Date Diagnosed Date Resolved Date History of myocardial infarction 04/25/2018 01/13/2021 Congestive heart failure 03/25/201806/2021 NSTEMI (non-ST elevated myoc ardial infarction) 03/17/2018 04/25/2018 Chest pain 03/17/2018 03/25/2018 Abnormal EKG 07/30/2014 03/25/2018 Anemia 02/01/2013 03/25/2018 Thyroid cyst 07/17/2012 01/13/2021 Prediabetes 07/15/2012 01/17/2016 History of elevated glucose 05/20/2011 03/25/2018 Glaucoma 05/06/2011 06/19/2015 Immunizations Immunization Administration Dates Next Due Influenza Seasonal Unspecified Formulation IM ,05/09/2013 Influenza Vaccine Split 3+ Yrs IM 08/07/2016 [...] like food, housing, medical care, and heating? Not hard at all 01/13/2021 Food Insecurity Answer Date Recorded In the past 12 months, have you worried that your food would run out before you had money to buy more? Never true 01/13/2021 In the past 12 months, did y ou run out of food and didn't have money to buy more? Never true 01/13/2021 Transportation Needs Answer Date Record ed In the past 12 months, has l ack of transportation kept you from medical appointments or from getting medications? 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 Gender Identity Not on file Sexual Orientation Not on file Occupation Industry Job Start Date Job End Date Not on file Not on file Not on file Not on file Last Filed Vital Signs Vital Sign Reading Time Taken Comments Blood Pressure 124/82 01/13/2021 11:40 AM CDT Pulse 73 01/13/2021 11:40 AM CDT Temperature 36.6 C (97.9 F) 01/13/2021 11:40 AM CDT Respiratory Rate 16 01/13/2021 11:40 AM CDT Oxygen Saturation 98% 01/13/2021 11:40 AM CDT Inhaled Oxygen Concentration - - Weight 68.9 kg (152 lb) 01/13/2021 11:40 AM CDT Height 167.6 cm (5' 6 ) 01/13/2021 11:40 AM CDT Body Mass Index 24.53 01/13/2021 11:40 AM CDT Plan of Treatment Health Maintenance Due Date Last Done Comments DTAP/TDAP/TD VACCINES (1 - Tdap) 1964 ZOSTER VACCINE (1 of 2) 1995 DIABETES ANNUAL FOOT EXAM 07/26/2019 07/26/2018 RSV VACCINE (60+ or ) (1 - 1-dose 75+ series) 2020 OSTEOPOROSIS SCREENING 02/03/2021 02/04/2016 DIABETES HBA1C Q 6 MONTHS 07/16/20212020, 10/26/2018, 07/26/2018, Additional history exists DIABETES MICROALBUMIN ANNUAL SCREEN 01/13/2022 01/13/2021, 04/28/2019, 04/25/2018 LDL CHOLESTEROL ANNUAL 01/13/2022 , 03/18/2018, 12/31/2015, Additional history exists [place] Preventative Visit/Annual Wellness Visit 09/06/2024 01/13/2021, 12/31/2015 INFLUENZA VACCINE (#1) 2025 0, 08/07/2016, 05/09/2013, Additional history exists DIABETES ANNUAL RETINAL EXAM 07/07/202509/2023, 05/20/2018, 05/20/2018, Additional history exists PNEUMOCOCCAL VACCINE 50+ YEARS Completed 05/26/2018 Procedures Procedure Name Priority Date/Time Associated Diagnosis Comments MICROALBUMIN/CREATIN INE RATIO, RANDOM UR Routine 01/13/2021 12:06 PM CDT Type 2 diabetes mellitus without complication, without long-term current use of insulin ([facility]) LIPID PANEL Routine 01/13/2021 12:06 PM CDT Essential hypertension, benign Mixed hyperlipidemia Type 2 diabetes mellitus without complication, without long-term current use of insulin ([facility]) ASHD (arteriosclerotic heart disease) HEMOGLOBIN A1C Routine 01/13/2021 12:06 PM CDT Type 2 diabetes mellitus without complication, without long-term current use of insulin ([facility]) HM DIABETES EYE EXAM Routine 05/20/2018 XR DEXA BONE DENSITY AXIAL 1 OR MORE SITES Routine 02/04/2016 1:14 PM CDT Postmenopausal from Last 3 Months or Most Recently Relevant to Health Maintenance Results * MICROALBUMIN/CREATININE RATIO, RANDOM UR (01/13/2021 12:06 PM CDT) MICROALBUMIN, URINE <1.2 No Reference Range mg/dL 01/14/2021 8:13 AM T [facility] CREATININE, URINE 105.1 29.0 - 226.0 mg/dL 01/14/2021 8:13 AM T [facility] Comment:Reference Range vari es with fluid intake and diet. MICROALBUMIN/C REAT RATIO, UR <11.4 <25.0 mg/g 01/14/2021 8:13 AM [facility] Urine URINE SPECIMEN OBTAINED BY CLEAN CATCH PROCEDURE / Unknown Collection / Unknown 01/13/2021 12:06 PM CDT 01/13/2021 8:10 PM CDT Narrative [facility] - 01/14/2021 8:13 AM CDT Condition Microalbumin/Creat ratio Normal Males <17 Normal Females <25 Microalbuminuria Males 17-299 Microalbuminuria Females 25-299 Overt proteinuria >=300 Alexander Marie MD URINE ORDERABLES Final Re sult [facility] CLIA# [id number] [place] [address] * (ABNORMAL) HEMOGLOBIN A1C (01/13/2021 12:06 PM CDT) HEMOGLOBIN A1C 7.0(H) See Comment % 01/14/2021 7:42 AM CDT [facility] EST. AVG GLUCOSE, A1C 154 mg/dL 01/14/2021 7:42 AM CDT [facility] Blood Collection / Unknown 01/13/2021 12:06 PM CDT 01/13/2021 8:13 PM CDT Narrative [facility] - 01/14/2021 7:42 AM CDT HGB A1C INTERPRETATION NORMAL: <5.7% PRE-DIABETES: 5.7 - 6.4% DIABETES: 6.5% OR GREATER Falsely low A1C measurements can occur when: 1. Anemia and/or hemolytic anemia is present. 2. Hemoglobin variants present. 3. Renal failure. 4. Transfusion of blood product in the last 120 days. We recommend ordering a fructosamine test([id number]) to more accurately assess glycemic status if any of the above conditions are present. Alexander Marie MD CHEMISTRY ORDERABLES Chelsi l Result [facility] CLIA# [id number] [address] [place] [address] * (ABNORMAL) LIPID PANEL (01/13/2021 12:06 PM CDT) CHOLESTEROL 299(H) <200 mg/dL 01/13/2021 9:36 PM CDT [facility] TRIGLYCERIDE 294(H) <150 mg/dL 01/13/2021 9:36 PM CDT [facility] HDL 32(L) 40 - 59 mg/dL 01/13/2021 9:36 PM CDT [facility] LDL CALCULATED 208(H) <100 mg/dL 01/13/2021 9:36 PM CDT [facility] NON-HDL CHOLESTEROL 267(H) <130 mg/dL 01/13/2021 9:36 PM CDT [facility] Blood Collection / Unknown 01/13/2021 12:06 PM CDT 01/13/2021 8:13 PM CDT Narrative [facility] - 01/13/2021 9:36 PM CDT TOTAL CHOLESTEROL mg/dL Desirable <200 Borderline high 200-239 High >=240 TRIGLYCERIDES mg/dL Normal <150 Borderline high 150-199 High 200-499 Very high >=500 HDL CHOLESTEROL mg/dL Low <40 Normal 40-59 Desirable >=60 NON HDL CHOLESTEROL mg/dL Optimal <130 Near Optimal 130-159 Borderline High 160-189 Very High >=190 CALCULATED LDL mg/dL LDL <70, OPTIMAL if have Atherosclerotic cardiovascular disease (ASCVD) or intermediate or higher (>7.5%) 10 year risk of ASCVD including most adults with diabetes. LDL <100, Optimal in adult patients with low (<7.5%) 10 year ASCVD risk LDL 100-160, Suboptimal LDL >160, High LDL >190, Very high ATPIII Guidelines Reference Ranges for Lipid Panels (NCEP/AMA) . Alexander Marie MD CHEMISTRY ORDERABLES Chelsi l Result [facility]# [id number] [address] [place] [id number] * DIABETES EYE EXAM (05/20/2018) us Abstract Spg Provider HEALTH MAINTENANCE Final R esult * XR DEXA BONE DENSITY AXIAL 1 OR MORE SITES (02/04/2016 1:14 PM CDT) Anatomical Region Laterality Modality Digital Radiogra phy 02/04/2016 1:15 PM CDT Impressions 02/04/2016 3:29 PM CDT IMPRESSION: 1. Bony osteopenia. Fracture risk is increased. [id number] Narrative 02/04/2016 3:29 PM CDT Exam: XR DEXA BONE DENSITY AXIAL 1 OR MORE SITES Date/Time of Exam: 02/04/2016 1:14 PM Reason For Exam: Postmenopausal. Findings: Bone mineral density is 0.841 g/sq cm with a T score -1.6 and a Z score of 0.3. This classifies as bony osteopenia according to the World Health Organization. Toña Aguirre SENIOR ANDROID SOFTWARE ENGINEER DIAGNOSTIC IMAGING ORDBerna EASON Final Result from Last 3 Months or Most Recently Relevant to Health Maintenance Insurance [facility] DUAL COMPLETE MCR PPO D-SNP RX OPTUM RX Member Subscriber Plan / Payer (Ef fective 2016-Present) Name:Yovana Ridley Relation to Subscriber:Self Name:Yovana Ridley Payer ID:Not on file Group ID:[id number] Type:RX Medicare Part D Address: [place] [employer] [employer] (INTERNAL) [facility] Internal Plans Advance Directives For more information, please contact: [phone] * Full Code (Latest Code Status on File) Date Activated Date Inactivated Comments 03/18/2018 2:25 PM 03/20/2018 4:42 PM * Full Code Date Activated Date Inactivated Comments 03/18/2018 12:11 AM 03/18/2018 2:25 PM Care Teams Lath Hand Relationship Specialty Start Date End Date Alexander Marie MD [address] [id number] PCP - General Family Practice 01/02/21
--- OUTSIDE RECORDS SUMMARY | 2025-07-03 13:55 | XMS_ITS | Encounter Summary ---
Author Organization [facility] Address [address] [place] [address] Care Team Providers Care Drug Safety Physician Name Role Phone Alexander Marie MD Primary Care Provider [phone] [phone] Reason for Referral * Outpatient Services (Routine) - Closed Specialty Diagnoses / Procedures Referred By Lul conley Referred To Contact Radiology Diagnoses Abnormal mammogram Procedures MAMMO POST US/STEREO GUIDED PROCEDURE LT Xiao Lester MD [address] [address] Phone: tel: fax: [facility] [address] [address] Phone: tel: fax: Referral ID Status Reason Start Date Expiration Date Visits Re quested Visits Authorized [id number] Closed 02/27/2016 03/29/2017 1 1 * Outpatient Services (Routine) - Closed Specialty Diagnoses / Procedures Referred By Lul conley Referred To Contact Radiology Diagnoses Abnormal mammogram Procedures MAMMO BREAST US BIOPSY LEFT Xiao Lester MD [address] [address] Phone: tel: fax: [facility] [address] [facility] [address] [place] [address] Phone: tel: fax: Referral ID Status Reason Start Date Expiration Date Visits Re quested Visits Authorized [id number] Closed 02/27/2016 03/29/2017 1 1 Encounter Details Date Type Department Care Team (Late st Contact Info) Description 02/27/2016 Ancillary Orders [facility] [address] [facility] [address] [place] [address] Xiao Lester MD [facility] [address] [id number] Abnormal mammogram (Primary Dx) Social History Tobacco Use Types Packs/Day Years Used Date Smoking Tobacco: Never Smokeless Tobacco: Never Alcohol Use Standard Drinks/Week Comments No 0 (1 standard drink = 0.6 oz pur e alcohol) Comments No Sex and Gender Information Value Date Recorded Sex Assigned at Not on file 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 Awaiting histopathology results. 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 Pathologist: Magalie Zhang MD Radiology-pathology correlation is concordant. Patient is diabetic. RECOMMENDATION: Six-month follow-up left diagnostic mammogram and ultrasound. Findings to be discussed with the patient by Dr. Lester's office. [id number] Narrative 03/11/2016 8:14 PM CDT ULTRASOUND GUIDED NEEDLE BIOPSY LEFT BREAST, TISSUE MARKER CLIP PLACEMENT AND POST CLIP MAMMOGRAM: HISTORY: 70-year-old with indeterminate mass left breast 3 o'clock position for ultrasound-guided core biopsy. PROCEDURE: Timeout was performed and informed consent was obtained from the patient, including risks of infection and bleeding. The left breast was evaluated sonographically and the mass was identified at the 3 o'clock position. The breast was prepped and draped in a sterile fashion. Utilizing aseptic technique, local anesthesia was achieved utilizing 5 mL 1% Xylocaine superficially, as well as 10 mL 1% Xylocaine with a 1:100,000 solution of epinephrine deeply. A 3 mm incision was made in the skin. Under sonographic guidance, a coaxial cannula was placed to the mass from a lateral approach and 3 cores were obtained without difficulty utilizing a 14 gauge spring-loaded biopsy device. An UltraClip coil-shaped biopsy clip was placed. Hemostasis was achieved with direct pressure. No immediate complication. Post-procedural CC and ML images were obtained. The biopsy clip is in good position. Patient confirmed she tolerated the procedure well. Hemostasis was re-confirmed. A Steri-strip, ice pack and pressure dressing were applied. The patient received verbal and written post-biopsy instructions and was released from the [facility] in stable condition. us Xiao Lester MD MAMMO ORDERABLES Final Resu lt * MAMMO BREAST US BIOPSY LEFT (03/05/2016 8:02 AM CDT) Anatomical Region Laterality Modality Breast Left Ultrasound 03/05/2016 8:03 AM CDT Impressions 03/11/2016 8:14 PM CDT IMPRESSION: Successful ultrasound-guided core biopsy left breast 3 o'clock position indeterminate mass. Awaiting histopathology results. 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 Pathologist: Magalie Zhang MD Radiology-pathology correlation is concordant. Patient is diabetic. RECOMMENDATION: Six-month follow-up left diagnostic mammogram and ultrasound. Findings to be discussed with the patient by Dr. Lester's office. [id number] Narrative 03/11/2016 8:14 PM CDT ULTRASOUND GUIDED NEEDLE BIOPSY LEFT BREAST, TISSUE MARKER CLIP PLACEMENT AND POST CLIP MAMMOGRAM: HISTORY: 70-year-old with indeterminate mass left breast 3 o'clock position for ultrasound-guided core biopsy. PROCEDURE: Timeout was performed and informed consent was obtained from the patient, including risks of infection and bleeding. The left breast was evaluated sonographically and the mass was identified at the 3 o'clock position. The breast was prepped and draped in a sterile fashion. Utilizing aseptic technique, local anesthesia was achieved utilizing 5 mL 1% Xylocaine superficially, as well as 10 mL 1% Xylocaine with a 1:100,000 solution of epinephrine deeply. A 3 mm incision was made in the skin. Under sonographic guidance, a coaxial cannula was placed to the mass from a lateral approach and 3 cores were obtained without difficulty utilizing a 14 gauge spring-loaded biopsy device. An UltraClip coil-shaped biopsy clip was placed. Hemostasis was achieved with direct pressure. No immediate complication. Post-procedural CC and ML images were obtained. The biopsy clip is in good position. Patient confirmed she tolerated the procedure well. Hemostasis was re-confirmed. A Steri-strip, ice pack and pressure dressing were applied. The patient received verbal and written post-biopsy instructions and was released from the [facility] in stable condition. Xiao Lester MD MAMMO ORDERABLES Final Resu lt documented in this encounter Visit Diagnoses Diagnosis Abnormal mammogram- Primary Abnormal mammogram, unspecified Abnormal mammogram Abnormal mammogram, unspecified Abnormal mammogram Abnormal mammogram, unspecified documented in this encounter Care Teams Drug Safety Physician Relationship Specialty Start Date End Date Alexander Marie MD [address] [address] PCP - General Family Practice 01/02/21 documented as of this encounter
[2025-07-03 14:15] LABS: Hematocrit 40.1 % (36-47); Hemoglobin 13.50 g/dL (11.27-16.99); Mean Corpuscular HGB Conc 33.7 g/dL (30-55); Mean Corpuscular Hemoglobin 28.9 pg (27-33); Mean Corpuscular Volume 85.9 fl (85-98); Nucleated Red Blood Cells % 0 %; Platelet Count 201 10^3/cmm (157-399); Red Blood Count 4.67 10^6/uL (3.85-5.65); White Blood Count 8.82 10^3/uL (3.29-11.43)
[2025-07-03 14:15] LABS: Respiratory Syncytial Virus Ce NEGATIVE (Negative); SARS-CoV-2 PCR NEGATIVE (Negative)
[2025-07-03] MEDS: cefTRIAXone 1,000 mg SDV 1000 MG IVP (14:21)
[2025-07-03 14:30] LABS: Lactic Sepsis W/Reflex 2.0 mmol/L (0.5-2.2)
[2025-07-03 14:31] LABS: Troponin(5th) Baseline 12 ng/L (0-10)
[2025-07-03 14:32] LABS: Alanine Aminotransferase 48 U/L (0-33); Albumin Level 4.0 g/dL (3.5-5.2); Alkaline Phosphatase 112 U/L (35-105); Anion Gap 16.9 (5-19); Aspartate Amino Transferase 56 U/L (0-32); Blood Urea Nitrogen 11 mg/dL (8-23); Calcium 9.5 mg/dL (8.5-10.5); Carbon Dioxide 28 mmol/L (22-29); Chloride 99 mmol/L (98-107); Creatinine Clr Calc Pharmacy 53.3513; Globulin 2.6 g/dL (1.3-4.6); Glucose 229 mg/dL (65-115); Osmolality Calculated 297 mOsm/kg (285-295); Potassium 3.9 mmol/L (3.5-5.1); Sodium 140 mmol/L (136-145); Total Protein 6.6 g/dL (6.6-8.7)
--- NOTE | 2025-07-03 14:33 | ECG_ITS ---
[facility] Date: 2025-07-03 Pat Name: Yovana Ridley Department: Room: Gender: Female Manager Servicing: : 1945 Requested By: Yessenia Wisdom Order Number: [id number] Reading MD: FELIX NEVAREZ Measurements Intervals Varnell Rate: 80 P: 9 OH: 170 QRS: 15 QRSD: 68 T: 44 QT: 384 QTc: 443 Interpretive Statements SINUS RHYTHM LOW QRS VOLTAGE IN PRECORDIAL LEADS [QRS DEFLECTION < 1.0 mV IN CHEST LEADS] SEPTAL MYOCARDIAL INFARCTION , OF INDETERMINATE AGE [40+ ms Q WAVE IN V1/V2] Compared to ECG 07/03/2025 13:31:45 Myocardial infarct finding now present T-wave abnormality no longer present Electronically Signed On 07-07-2025 21:13:37 CDT by FELIX NEVAREZ [email or web address]
--- NOTE | 2025-07-03 15:42 | PC.SOCIAL ---
Comru Access Code Comru Access Code: [email or web address]
--- NOTE | 2025-07-03 15:54 | PC.NURSE ---
upon pt arrival to er pt has coccyx maceration with small open area noted.
--- NOTE | 2025-07-03 15:55 | CTR_ITS ---
PROCEDURE INFORMATION: Exam: CT Abdomen And Pelvis Without Contrast Exam date and time: 07/03/2025 4:08 PM Age: 80 years old Clinical indication: Abdominal pain; Generalized; Additional info: Abdominal pain, UTI, sacral ulcer TECHNIQUE: Imaging protocol: Computed tomography of the abdomen and pelvis without contrast. Radiation optimization: All CT scans at this facility use at least one of these dose optimization techniques: automated exposure control; mA and/or kV adjustment per patient size (includes targeted exams where dose is matched to clinical indication); or iterative reconstruction. COMPARISON: CR XR hip RT 2-3V wo/w pel* [id number] 07/02/2025 11:08 AM RADIATION DOSE METRICS: Total DLP (mGy-cm): 435.99 FINDINGS: Lungs: Lung bases are clear. Heart: Heart size appears enlarged Liver: There is a rim like calcification in the right lobe of the liver. There is a 3.3 x 2.5 irregular low-attenuation mass in the right lobe posteriorly. Another measures 1 cm in the inferior aspect of the right lobe. Gallbladder and biliary ducts: Status post cholecystectomy. Pancreas: Normal. No ductal dilation. Spleen: Normal. No splenomegaly. Adrenal glands: Normal. No mass. Kidneys and ureters: Normal. No hydronephrosis. Stomach and bowel: Colonic diverticulosis is present without diverticulitis. Appendix: No evidence of appendicitis. Intraperitoneal space: Unremarkable. No free air. No significant fluid collection. Vasculature: Moderate atherosclerotic disease of the aorta and branch vessels is evident. No evidence of aneurysmal dilatation. Lymph nodes: Unremarkable. No enlarged lymph nodes. Urinary bladder: Unremarkable as visualized. Reproductive: Status post hysterectomy. Bones/joints: Unremarkable. No acute fracture. Soft tissues: Unremarkable. CT/CT abdomen pelvis wo con [id number] IMPRESSION: 1. Status post cholecystectomy. 2. Status post hysterectomy. 3. Colonic diverticulosis is present without diverticulitis. 4. Low-attenuation lesions in the liver are probably cystic. 5. No acute abnormality identified.
--- NOTE | 2025-07-03 15:55 | CTR_ITS ---
PROCEDURE INFORMATION: Exam: CT Right Lower Extremity Without Contrast, Foot Exam date and time: 07/03/2025 4:12 PM Age: 80 years old Clinical indication: Pain; Foot; Right TECHNIQUE: Imaging protocol: CT of the right lower extremity without contrast was performed. Exam focused on the foot. Radiation optimization: All CT scans at this facility use at least one of these dose optimization techniques: automated exposure control; mA and/or kV adjustment per patient size (includes targeted exams where dose is matched to clinical indication); or iterative reconstruction. COMPARISON: CR XR foot RT min 3V* [id number] 07/03/2025 12:59 PM RADIATION DOSE METRICS: Total DLP (mGy-cm): 152.78 FINDINGS: Bones/joints: The bones appear osteopenic. There are mild degenerative changes. No acute fracture identified. Soft tissues: Mild soft tissue swelling of the forefoot is noted. CT/CT foot RT wo con* [id number] IMPRESSION: Mild degenerative changes. No acute process identified.
--- NOTE | 2025-07-03 16:01 | PM.HP ---
Providers/Chief Complaint Primary Care Provider: LISSA Cardona Chief Complaint: Fall, AMS History of Present Illness Yovana Ridley is a 80 year old female with a past medical history of dementia, type 2 diabetes mellitus, who has been more bedbound according to family, dementia has progressed, who presents to [facility] for generalized weakness, altered mental status. Currently patient is alert to person, to place, not to time, can follow some commands, but she denies any pain complaints, no chest pain, shortness of breath, no abdominal pain, no diarrhea, according to family members at bedside, she has had generalized weakness, she has been more bedbound, her appetite also has declined, she is more confused, she has had right foot pain, due to right foot injury Review of Systems Const: Denies: fever(s) Card: Denies: chest pain Resp: Denies: dyspnea GI: Denies: abdominal pain Neuro: Denies: headache(s) Psych: Denies: anxiety Medications/Allergies Home Medications ?Medication ?Instructions ?Recorded ?Confirmed ?Last Taken ?Type brimonidine 0.2 %-timolol 0.5 % 1 drop ophthalmic (eye) BID 05/31/20 07/03/25 07/03/25 History eye drops wsegtyrrrbav-[id number]-pmww 1 tab PO DAILY 08/09/24 07/03/25 07/03/25 History fumarate 18 mg-folic acid 400 mcg tablet (One-A-Day Women's Complete) syringe with needle 3 mL 25 x 5/8 #50 ea 06/26/25 07/03/25 Unknown Rx (BD Eclipse Luer-Savita) cholecalciferol (vitamin D3) 50 50 mcg PO DAILY 07/03/25 07/03/25 07/03/25 History mcg (2,000 unit) tablet (Vitamin D3) cyanocobalamin (vitamin B-12) 1,000 mcg IM Q30D 07/03/25 07/03/25 06/26/25 History 1,000 mcg/mL injection solution donepezil 10 mg tablet 10 mg PO QPM 07/03/25 07/03/25 07/02/25 History glipizide 10 mg tablet 10 mg PO BID 07/03/25 07/03/25 07/03/25 History Allergies Allergy/AdvReac Type Severity Reaction Status Date / Time Penicillins Allergy Intermediate rash Verified 07/02/25 10:42 Sulfa (Sulfonamide Allergy Intermediate rash Verified 07/02/25 10:42 Antibiotics) PFSH Acute PFSH: Medical History Generalized weakness Fall in home, subsequent encounter Urgency incontinence Recurrent UTI Anemia Lower respiratory infection Urinary incontinence Hypertension screen Confusion Fatigue Vitamin D deficiency Diabetes mellitus, type II Surgical History S/P abdominal hysterectomy S/P cholecystectomy Family History Father , AT AGE 64 CAD (coronary artery disease) Mother , IN HER EARLY 70'S CAD (coronary artery disease) Social History Smoking and tobacco/nicotine status: never used tobacco/nicotine Alcohol intake: never Marital status: Current occupational status: retired Vitals/I&O/Wt Last Vital Signs Temp 98.5 F 07/03/25 12:22 Pulse 73 07/03/25 14:30 Resp 16 07/03/25 14:28 BP 189/87 07/03/25 14:30 Pulse Ox 97 07/03/25 14:30 O2 Del Method Room Air 07/03/25 14:30 Weight last 48 hrs Weight 61.689 kg Physical Exam Const: COMMON NORMALS: no acute distress EXAM LIMITATIONS: altered mental status ORIENTATION/CONSCIOUSNESS: Yes awake, Yes oriented to person and Yes oriented to place; not oriented to time Eye: COMMON NORMALS: Equal, round and reactive pupils present Resp: COMMON NORMALS: normal respiratory effort, No retractions, No use of accessory muscles and clear to auscultation bilaterally AUSCULTATION: clear to auscultation bilaterally Cardio: COMMON NORMALS: regular rate, regular rhythm, S1 normal heart sound present and S2 normal heart sound present RATE: regular rate RHYTHM: regular rhythm HEART SOUNDS: S1 normal heart sound present and S2 normal heart sound present GI: COMMON NORMALS: Normal to inspection, nondistended, normoactive bowel sounds present, Soft to palpation and non-tender Extremity: COMMON NORMALS: no calf tenderness and no pedal edema Neuro: COMMON NORMALS: CN's II-XII intact bilaterally and moves all extremities OTHER: Can follow some commands, able to smile for me, able to move bilateral upper lower extremities, no focal weakness, Data 07/03/25 13:52 07/03/25 13:52 Micro: Microbiology 07/03/25 13:54 Blood Culture - Preliminary Blood SPECIMEN COLLECTED 07/03/25 13:52 Blood Culture - Preliminary Blood SPECIMEN COLLECTED A&P Assessment and plan 1. Diabetes mellitus, type II: 2. Urinary tract infection: 3. Decubitus ulcer: 4. Encephalopathy: Plan: Altered mental status - With history of dementia - With urinary tract infection - Possible CVA? Possible CVA - CT head showing decreased attenuation of the left frontal lobe, favored prior infarct with encephalomalacia - I cannot discern any focal weakness, she does have global encephalopathy CT/CT head wo con* [id number] IMPRESSION: 1. No acute intracranial hemorrhage or edema. 2. Area of decreased attenuation and decreased attenuation involving the LEFT frontal lobe. Favor this is only a prior infarct with encephalomalacia. No prior studies for comparison. For further evaluation and exclude mass follow-up MRI with and without contrast can be obtained on a nonurgent basis if clinically thought necessary. No prior studies for comparison. Correlate with prior history of an infarct. 3. Mild atrophy and small vessel disease. Plan - Aspirin, statin - Cardiac echo, carotid ultrasound - Neurochecks, NIH stroke scale - Dysphagia eval - PT OT, speech therapy eval Urinary tract infection - IV fluids - IV Rocephin - CT scan abdomen pelvis Sacral decubitus ulcer, will need wound care Right foot injury, CT right foot Full code Lovenox for DVT prophylaxis PDMP PDMP Reviewed: Not Reviewed Attestations Medical Necessity Statement*: Patient requires hospitalization, inpatient, greater than 2 midnights, for UTI, generalized weakness, altered mental status, transaminitis, sacral ulcer, right foot injury Diagnoses Diabetes mellitus, type II E11.9 Urinary tract infection N39.0 Decubitus ulcer L89.90 Encephalopathy G93.40
[2025-07-03 16:08] LABS: Troponin 5 2HR 10.97 ng/L (0-10)
[2025-07-03 16:13] LABS: Troponin 5 2HR Delta -1.03 ABS# (0-10)
--- NOTE | 2025-07-03 16:14 | USR_ITS ---
PROCEDURE INFORMATION: Exam: US Duplex Bilateral Extracranial Arteries; Complete; Carotid Arteries Exam date and time: 07/03/2025 5:17 PM Age: 80 years old Clinical indication: Screening exam; Additional info: AMS TECHNIQUE: Imaging protocol: Real-time duplex ultrasound scan of the bilateral extracranial arteries combining miller scale, color Doppler and spectral waveform analysis with image documentation. Complete exam. Exam focused on the carotid arteries. COMPARISON: CT head wo con* [id number] 07/03/2025 1:19 PM FINDINGS: Right common carotid artery: Unremarkable. No occlusion or stenosis. Waveforms are normal. Right internal carotid artery: Unremarkable. No occlusion or stenosis. Waveforms are normal. Right ICA/CCA ratio: Within normal limits. Right external carotid artery: No stenosis in the origin. Right vertebral artery: Unremarkable. Antegrade flow. Left common carotid artery: Unremarkable. No occlusion or stenosis. Waveforms are normal. Left internal carotid artery: Unremarkable. No occlusion or stenosis. Waveforms are normal. Left ICA/CCA ratio: Within normal limits. Left external carotid artery: No stenosis in the origin. Left vertebral artery: Unremarkable. Antegrade flow. US/CV carotid duplex BI* [id number] IMPRESSION: No carotid arterial stenosis. REFERENCES: SRU CRITERIA. The degree of internal carotid artery stenosis is based on criteria defined by the Society of Radiologists in Ultrasound (SRU). Normal is no stenosis. Mild is less than 50% stenosis. Moderate is 50-69% stenosis. Severe is greater than 69% stenosis to near occlusion. Near occlusion is a markedly narrowed lumen. Total occlusion is no detectable patent lumen. Gabriela Fonseca, et al. Carotid Artery Stenosis: Miller-Scale and Doppler US Diagnosis-Society of Radiologists in Ultrasound Consensus Conference. Radiology 2003; 229:340-346.
--- NOTE | 2025-07-03 16:14 | USCV_ITS ---
Yovana Ridley Age: 80 Gender: F : 1945 Exam Date: 07/03/2025 19:32 Ordering Phys: Evan Dickens MD Technologist: SABA [place] [facility] [place]: dementia, DMS, AMS BP: 178 / 69 HR: 77 Rhythm: Sinus Technical Quality: Adequate MEASUREMENTS (Male / Female) Normal Values 2D ECHO LV Diastolic Diameter PLAX 3.1 cm 4.2 - 5.9 / 3.9 - 5.3 cm IVS Diastolic Thickness 1.2 cm 0.6 - 1.0 / 0.6 - 0.9 cm IVS Systolic Thickness 2.0 cm LVPW Diastolic Thickness 1.2 cm 0.6 - 1.0 / 0.6 - 0.9 cm LVPW Systolic Thickness 1.1 cm LVOT Diameter 2.0 cm LV Ejection Fraction 2D Teich 66.5 % LV Ejection Fraction MOD 4C 67.2 % LV Ejection Fraction MOD 2C 77.0 % LV Ejection Fraction 2C AL 80.1 % LA Diameter 2.7 cm Aorta at Sinotubular Diameter 2.7 cm IVC Diameter 1.2 cm M-MODE LA Ao Ratio MM 1.4 AV Cusp Separation MM 1.1 cm DOPPLER AV Peak Velocity 193.0 cm/s LVOT Peak Velocity 74.0 cm/s AV Area Cont Eq vti 1.7 cm squared AV Area Cont Eq pk 1.2 cm squared MV Peak Velocity 102.0 cm/s MV Area PHT 3.3 cm squared Mitral E to A Ratio 0.8 TR Peak Velocity 243.0 cm/s TR Peak Gradient 23.6 mmHg TV Peak E Velocity 57.0 cm/s PV Peak Velocity 143.0 cm/s FINDINGS Left Ventricle Normal left ventricular size, systolic function and wall thickness with no regional wall motion abnormality. Left ventricular ejection fraction is 67%. Normal left ventricular diastolic function. Right Ventricle Normal right ventricular size and systolic function. Normal pulmonary artery systolic pressure, less than 35 mmHg. Right Atrium Normal right atrial size. Left Atrium Normal left atrial size. IA Septum Normal appearance of the interatrial septum. Mitral Valve Normal mitral valve structure. No mitral valve stenosis or regurgitation. Aortic Valve Normal aortic valve structure. No aortic valve stenosis or regurgitation. Tricuspid Valve Normal tricuspid valve structure. No tricuspid valve stenosis or regurgitation. Normal pulmonary pressure. Pulmonic Valve Normal pulmonic valve structure. Trace pulmonic valve regurgitation. Pericardium Very small posterior pericardial effusion. No echocardiogram evidence of tamponade physiology. Aorta Normal diameter of the aortic root and ascending thoracic aorta. IVC Normal IVC diameter. CONCLUSIONS Normal left ventricular size, systolic function and wall thickness with ejection fraction of 67%. Normal right ventricular size and systolic function. No significant valvular abnormalities. Very small posterior pericardial effusion. No echocardiogram evidence of tamponade physiology. Ramana Jo MD, FACC (Electronically Signed) Final Date: 03 July 2025 20:24 S
[2025-07-03 16:25] LABS: Ferritin 247 ng/mL (15-150); Iron 48 ug/dL (37-145); Lipase 20 U/L (13-60)
[2025-07-03 16:31] LABS: Procalcitonin 0.10 ng/mL (0-0.5)
[2025-07-03 16:32] LABS: Hepatitis A Antibody IgM Non-Reactive (Nonreactive); Hepatitis B Surface Antigen Non-Reactive (Nonreactive)
[2025-07-03 21:37] LABS: Troponin 5 6HR 14.01 ng/L (0-10); Troponin 5 6HR Delta 2.01 ng/L (0-12)
[2025-07-03 21:41] LABS: Cholesterol 307 mg/dL (0-200); HDL Cholesterol 30 mg/dL (60-100); Thyroid Stimulating Hormone 1.82 uIU/mL (0.27-4.20); Triglycerides 281 mg/dL (0-150)
[2025-07-03 22:04] LABS: Estmated Average Glucose 186; Hemoglobin A1C 8.1 % (4.0-6.0)
[2025-07-03] MEDS: pantoprazole 40 mg SDV IVP (22:17)
[2025-07-04] VITALS (8 sets, daily range): BP systolic 112–165; BP diastolic 69–77; PULSE 77–89; RESP 16; TEMP 36.2–36.8; O2SAT 92–97
[2025-07-04 05:32] LABS: Hematocrit 35.8 % (36-47); Hemoglobin 11.70 g/dL (11.27-16.99); Mean Corpuscular HGB Conc 32.7 g/dL (30-55); Mean Corpuscular Hemoglobin 28.1 pg (27-33); Mean Corpuscular Volume 85.9 fl (85-98); Nucleated Red Blood Cells % 0 %; Platelet Count 191 10^3/cmm (157-399); Red Blood Count 4.17 10^6/uL (3.85-5.65); White Blood Count 7.70 10^3/uL (3.29-11.43)
[2025-07-04 06:01] LABS: Alanine Aminotransferase 35 U/L (0-33); Albumin Level 3.4 g/dL (3.5-5.2); Alkaline Phosphatase 107 U/L (35-105); Anion Gap 16.5 (5-19); Aspartate Amino Transferase 32 U/L (0-32); Blood Urea Nitrogen 12 mg/dL (8-23); Calcium 8.5 mg/dL (8.5-10.5); Carbon Dioxide 24 mmol/L (22-29); Chloride 101 mmol/L (98-107); Creatinine Clr Calc Pharmacy 53.9938; Globulin 2.6 g/dL (1.3-4.6); Glucose 173 mg/dL (65-115); Osmolality Calculated 290 mOsm/kg (285-295); Potassium 3.5 mmol/L (3.5-5.1); Sodium 138 mmol/L (136-145); Total Protein 6.0 g/dL (6.6-8.7)
[2025-07-04 06:09] LABS: NT Pro B Type Natriuretic Pept 187 pg/mL (0-450)
--- NOTE | 2025-07-04 10:03 | PC.CHAP ---
Pastoral Care Encounter/Spiritual Assessment Type of Contact [] Declined business support manager visit [] Patient/Family/Request visit [] Outpatient visit [] Follow-up visit [] Physician referral [] Code/Alert [x] Routine visit [] Staff referral [] Actively dying [] Patient sleeping [x] Family support [] [] Out of room [] Palliative care [] [] Receiving care in room [] Pre-surgical visit [] Trauma [] Long length of stay [] ICU visit [] Other: Relational/Emotional Strength [x] Patient feels connected with others/family/visitors/staff [] Distress [] Loneliness/isolation [] Abandonment Spirituality of Patient [x] Person of [place] [] Attends Anabaptism of their [place] [x] Believes in Prayer [] Reads Bible or Uatsdin materials [] There are Spiritual issues to be addressed Life Cycle Assessment Analyst Interventions [x] Prayer [x] Active listening [] Non-anxious presence [x] Spiritual/emotional support [] Crisis/trauma care [] Spiritual counseling [] Bereavement support [] Provided bereavement packet [] Provided Bible/devotional materials [] Provided toy/stuffed animal, coloring book to patient or family member [] Provided Communion [] Anointing/[place] [] Salvation [x] Completed spiritual assessment [] Other: Impact on Illness or Injury [] Angry [] Fearful [] Anxious [] Often cries [] Exhaustion [] Unable to work [] Unable to attend spiritism [] Unable to walk/stand [] Unable to read [] Unable to drive [] Unable to eat/drink [] Unable to sleep [] Unable to be with family [] Patient intubated [] Other: Summary Time spent with patient 5 min
[2025-07-04] MEDS: cefTRIAXone 1,000 mg SDV 1000 MG IVP (12:30)
--- NOTE | 2025-07-04 13:37 | P.PN_ITS ---
Subjective 2 Subjective: She was seen this morning, at bedside she is alert to person, to place, not to time, she follows commands, she has no pain complaints Vitals/I&O/Wt Last Vital Signs Temp 97.2 F L 07/04/25 11:45 Pulse 89 07/04/25 11:45 Resp 16 07/04/25 11:45 BP 112/77 07/04/25 11:45 Pulse Ox 95 07/04/25 11:45 O2 Del Method Room Air 07/04/25 11:45 07/03/25 07/04/25 07/04/25 22:59 06:59 14:59 Intake Total 527.5 / 527.5 406.25 / 406.25 Balance 527.5 / 527.5 406.25 / 406.25 Weight last 48 hrs Weight 69.49 kg Weight 63.503 kg Weight 61.689 kg Physical Exam 2 Const: COMMON NORMALS: no acute distress ORIENTATION/CONSCIOUSNESS: Yes awake, Yes oriented to person and Yes oriented to place; not oriented to time Resp: COMMON NORMALS: normal respiratory effort, No retractions, No use of accessory muscles and clear to auscultation bilaterally AUSCULTATION: clear to auscultation bilaterally Cardio: COMMON NORMALS: regular rate, regular rhythm, S1 normal heart sound present and S2 normal heart sound present RATE: regular rate RHYTHM: r egular rhythm HEART SOUNDS: S1 normal heart sound present and S2 normal heart sound present GI: COMMON NORMALS: Normal to inspection, nondistended, normoactive bowel sounds present and non-tender Extremity: COMMON NORMALS: no calf tenderness and no pedal edema Neuro: SENSORIUM/ORIENTATION: Yes oriented to person, Yes oriented to place and No oriented to time Psych: COMMON NORMALS: mental status grossly normal Data 07/04/25 04:46 07/04/25 04:46 Micro: Microbiology 07/03/25 12:41 Urine Culture - Preliminary Urine,Clean Catch Gram Negative Rods 07/03/25 13:54 Blood Culture - Preliminary Blood SPECIMEN COLLECTED 07/03/25 13:52 Blood Culture - Preliminary Blood SPECIMEN COLLECTED A&P Assessment and plan 1. Diabetes mellitus, type II: 2. Urinary tract infection: 3. Decubitus ulcer: 4. Encephalopathy: Plan: Altered mental status - With history of dementia - With urinary tract infection - Possible CVA? Possible CVA -Subacute versus chronic - CT head showing decreased attenuation of the left frontal lobe, favored prior infarct with encephalomalacia - I cannot discern any focal weakness, she does have global encephalopathy CT/CT head wo con* [id number] IMPRESSION: 1. No acute intracranial hemorrhage or edema. 2. Area of decreased attenuation and decreased attenuation involving the LEFT frontal lobe. Favor this is only a prior infarct with encephalomalacia. No prior studies for comparison. For further evaluation and exclude mass follow-up MRI with and without contrast can be obtained on a nonurgent basis if clinically thought necessary. No prior studies for comparison. Correlate with prior history of an infarct. 3. Mild atrophy and small vessel disease. 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 Normal right ventricular size and systolic function. No significant valvular abnormalities. Very small posterior pericardial effusion. No echocardiogram evidence of tamponade physiology. -carotid ultrasound US/CV carotid duplex BI* [id number] IMPRESSION: No carotid arterial stenosis. - Neurochecks, NIH stroke scale - Dysphagia eval - PT OT, speech therapy eval Urinary tract infection - IV fluids - IV Rocephin - CT scan abdomen pelvis CT/CT abdomen pelvis wo con [id number] IMPRESSION: 1. Status post cholecystectomy. 2. Status post hysterectomy. 3. Colonic diverticulosis is present without diverticulitis. 4. Low-attenuation lesions in the liver are probably cystic. 5. No acute abnormality identified. Sacral decubitus ulcer, continue repositioning, Right foot injury, CT right foot CT/CT foot RT wo con* [id number] IMPRESSION: Mild degenerative changes. No acute process identified. Full code Lovenox for DVT prophylaxis PDMP PDMP Reviewed: Not Reviewed Attestations 2 Medical Necessity Statement*: Patient reports last seizure for UTI, possible CVA, mental status, right foot injury Diagnoses Diabetes mellitus, type II E11.9 Urinary tract infection N39.0 Decubitus ulcer L89.90 Encephalopathy G93.40
[2025-07-04] MEDS: pantoprazole 40 mg SDV IVP (21:53)
[2025-07-05] VITALS: BP 182/73; PULSE 90; RESP 16; TEMP 36.6; O2SAT 93
[2025-07-05 04:00] VITALS: BP 151/78; PULSE 86; RESP 16; TEMP 36.9; O2SAT 96
[2025-07-05 06:17] LABS: Hematocrit 33.8 % (36-47); Hemoglobin 11.10 g/dL (11.27-16.99); Mean Corpuscular HGB Conc 32.8 g/dL (30-55); Mean Corpuscular Hemoglobin 28.5 pg (27-33); Mean Corpuscular Volume 86.7 fl (85-98); Nucleated Red Blood Cells % 0 %; Platelet Count 164 10^3/cmm (157-399); Red Blood Count 3.90 10^6/uL (3.85-5.65); White Blood Count 6.95 10^3/uL (3.29-11.43)
[2025-07-05 06:40] LABS: Alanine Aminotransferase 31 U/L (0-33); Albumin Level 3.3 g/dL (3.5-5.2); Alkaline Phosphatase 92 U/L (35-105); Anion Gap 12.3 (5-19); Aspartate Amino Transferase 30 U/L (0-32); Blood Urea Nitrogen 13 mg/dL (8-23); Calcium 8.1 mg/dL (8.5-10.5); Carbon Dioxide 24 mmol/L (22-29); Chloride 105 mmol/L (98-107); Creatinine Clr Calc Pharmacy 55.9697; Globulin 2.5 g/dL (1.3-4.6); Glucose 264 mg/dL (65-115); Osmolality Calculated 295 mOsm/kg (285-295); Potassium 3.3 mmol/L (3.5-5.1); Sodium 138 mmol/L (136-145); Total Protein 5.8 g/dL (6.6-8.7)
[2025-07-05 07:47] VITALS: BP 171/75; PULSE 81; RESP 17; TEMP 36.7; O2SAT 95
[2025-07-05] MEDS: polyethylene glycol 3350 Pkt 17 gm PO (10:35)
[2025-07-05 11:55] VITALS: BP 164/78; PULSE 83; RESP 16; TEMP 36.5; O2SAT 100
--- NOTE | 2025-07-05 13:17 | P.DS_ITS ---
Discharge Providers Date of Admission: 07/03/25 16:30 Date of Discharge: July 05, 2025 Attending Provider at Admission: Evan Dickens MD Attending Provider at Discharge: Evan Dickens MD Primary Care Provider: LISSA Cardona Diagnoses at Discharge Discharge Diagnosis 1. Type 2 diabetes mellitus without complication, without long-term current use of insulin: 2. Urinary tract infection: 3. Decubitus ulcer: 4. Encephalopathy: Reason for Visit Reason for Visit: Fall, AMS Hospital Course Hospital Course Yovana Ridley is a 80 year old female with a past medical history of dementia, type 2 diabetes mellitus, who has been more bedbound according to family, dementia has progressed, who presents to [facility] for generalized weakness, altered mental status. Currently patient is alert to person, to place, not to time, can follow some commands, but she denies any pain complaints, no chest pain, shortness of breath, no abdominal pain, no diarrhea, according to family members at bedside, she has had generalized weakness, she has been more bedbound, her appetite also has declined, she is more confused, she has had right foot pain, due to right foot injury Patient was admitted to [facility] for urinary tract infection, received IV Rocephin, discharged on p.o. antibiotics Sacral decubitus ulcer, stage I, will require repositioning every 2 hours, offloading, wound care Possible CVA -Subacute versus chronic - CT head showing decreased attenuation of the left frontal lobe, favored prior infarct with encephalomalacia - I cannot discern any focal weakness, she does have global encephalopathy CT/CT head wo con* [id number] IMPRESSION: 1. No acute intracranial hemorrhage or edema. 2. Area of decreased attenuation and decreased attenuation involving the LEFT frontal lobe. Favor this is only a prior infarct with encephalomalacia. No prior studies for comparison. For further evaluation and exclude mass follow-up MRI with and without contrast can be obtained on a nonurgent basis if clinically th ought necessary. No prior studies for comparison. Correlate with prior history of an infarct. 3. Mild atrophy and small vessel disease. 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 Normal right ventricular size and systolic function. No significant valvular abnormalities. Very small posterior pericardial effusion. No echocardiogram evidence of tamponade physiology. -carotid ultrasound US/CV carotid duplex BI* [id number] IMPRESSION: No carotid arterial stenosis. - Will be managed on aspirin, statin with close follow-up with primary care as o utpatient Physical Exam Const: COMMON NORMALS: no acute distress ORIENTATION/CONSCIOUSNESS: Yes awake, Yes oriented to person and Yes oriented to place; not oriented to time Resp: COMMON NORMALS: normal respiratory effort, No retractions, No use of accessory muscles and clear to auscultation bilaterally AUSCULTATION: clear to auscultation bilaterally Cardio: COMMON NORMALS: regular rate, regular rhythm, S1 normal heart sound present and S2 normal heart sound present RATE: regular rate RHYTHM: regular rhythm HEART SOUNDS: S1 normal heart sound present and S2 normal heart sound present GI: COMMON NORMALS: Normal to inspection, nondistended, normoactive bowel sounds present and non-tender Extremity: COMMON NORMALS: no pedal edema Neuro: COMMON NORMALS: CN's II-XII intact bilaterally, moves all extremities and no focal motor deficits SENSORIUM/ORIENTATION: Yes oriented to person, Yes oriented to place and No oriented to time Psych: COMMON NORMALS: mental status grossly normal Discharge Data Studies Completed and Pending Completed Studies During Hospitalization Category Date Time Status CT abdomen pelvis wo con [id number] Stat Cat Scan 07/03/25 15:[address] foot RT wo con* [id number] Stat Cat Scan 07/03/25 15:[address] head wo con* [id number] Stat Cat Scan 07/03/25 12:56 Completed XR chest 1V portable [id number] Stat Exams 07/03/25 12:56 Completed XR foot RT min 3V* [id number] Stat Exams 07/03/25 12:56 Completed CV carotid duplex BI* [id number] Stat Ultrasound 07/03/25 16:14 Completed CV. echo complete* [id number] Stat Ultrasound 07/03/25 16:14 Completed Pending at discharge Category Date Time Status Blood Culture Stat Lab 07/03/25 13:54 Results Complete Blood Count w/Auto AM LABS Lab 07/06/25 04:00 Ordered Comprehensive Metabolic Panel AM LABS Lab 07/06/25 04:00 Ordered Radiology Impressions Chest X-Ray 07/03/25 12:56 IMPRESSION: 1. No acute cardiopulmonary finding. Foot X-Ray 07/03/25 12:56 IMPRESSION: 1. No acute fractures identified. Head CT 07/03/25 12:56 IMPRESSION: 1. No acute intracranial hemorrhage or edema. 2. Area of decreased attenuation and decreased attenuation involving the LEFT frontal lobe. Favor this is only a prior infarct with encephalomalacia. No prior studies for comparison. For further evaluation and exclude mass follow-up MRI with and without contrast can be obtained on a nonurgent basis if clinically thought necessary. No prior studies for comparison. Correlate with prior history of an infarct. 3. Mild atrophy and small vessel disease. Abdomen/Pelvis CT 07/03/25 15:55 IMPRESSION: 1. Status post cholecystectomy. 2. Status post hysterectomy. 3. Colonic diverticulosis is present without diverticulitis. 4. Low-attenuation lesions in the liver are probably cystic. 5. No acute abnormality identified. Foot CT 07/03/25 15:55 IMPRESSION: Mild degenerative changes. No acute process identified. Carotid Doppler Study 07/03/25 16:14 IMPRESSION: No carotid arterial stenosis. REFERENCES: SRU CRITERIA. The degree of internal carotid artery stenosis is based on criteria defined by the Society of Radiologists in Ultrasound (SRU). Normal is no stenosis. Mild is less than 50% stenosis. Moderate is 50-69% stenosis. Severe is greater than 69% stenosis to near occlusion. Near occlusion is a markedly narrowed lumen. Total occlusion is no detectable patent lumen. Gabriela Fonseca et al. Carotid Artery Stenosis: Miller-Scale and Doppler US Diagnosis-Society of Radiologists in Ultrasound Consensus Conference. Radiology 2003; 229:340-346. Laboratory Results WBC 6.95 10^3/uL (3.29-11.43) 07/05/25 05:17 RBC 3.90 10^6/uL (3.85-5.65) 07/05/25 05:17 Hgb 11.10 g/dL (11.27-16.99) L 07/05/25 05:17 Hct 33.8 % (36-47) L 07/05/25 05:17 MCV 86.7 fl (85-98) 07/05/25 05:17 MCH 28.5 pg (27-33) 07/05/25 05:17 MCHC 32.8 g/dL (30-55) 07/05/25 05:17 RDW 13.4 % (12.1-15.1) 07/05/25 05:17 Plt Count 164 10^3/cmm (157-399) 07/05/25 05:17 MPV 9.9 fL (7.4-10.4) 07/05/25 05:17 Neut % (Auto) 61.2 % 07/05/25 05:17 Lymph % (Auto) 25.9 % 07/05/25 05:17 [place] % (Auto) 6.6 % 07/05/25 05:17 Eos % (Auto) 5.5 % 07/05/25 05:17 Baso % (Auto) 0.4 % 07/05/25 05:17 Neut # (Auto) 4.25 10^3/uL (1.8-7.7) 07/05/25 05:17 Lymph # (Auto) 1.8 10^3/uL (0.8-4.8) 07/05/25 05:17 [place]linger # (Auto) 0.5 10^3/uL (0.2-0.9) 07/05/25 05:17 Eos # (Auto) 0.4 10^3/uL (0.0-0.8) 07/05/25 05:17 Baso # (Auto) 0.0 10^3/uL (0.0-0.1) 07/05/25 05:17 Nucleated RBC % (auto) 0 % 07/05/25 05:17 Nucleated RBCs # 0.0 /100WBC 07/05/25 05:17 Specimen Type Arterial 07/03/25 13:21 Sample Site Radial, left 07/03/25 13:21 ABG pH 7.45 (7.35-7.45) 07/03/25 13:21 ABG pCO2 42.1 mmHg (35-45) 07/03/25 13:21 ABG pO2 70.8 mmHg (80.0-100.0) L 07/03/25 13:21 ABG PO2/FiO2 Ratio 337 07/03/25 13:21 ABG HCO3 29.1 mmol/L (22-26) H 07/03/25 13:21 ABG O2 Saturation 95.8 07/03/25 13:21 ABG Base Excess 4.5 mmol/L (-2.0-2.0) H 07/03/25 13:21 William Test Pos 07/03/25 13:21 A-a O2 Gradient 3.4 mmHg (5-10) L 07/03/25 13:21 Hematocrit 41.2 % (37-47) 07/03/25 13:21 Hgb O2 Saturation 94.3 % (95-100) L 07/03/25 13:21 Carboxyhemoglobin 1.4 %THgb (0.4-20.1) 07/03/25 13:21 Methemoglobin 0.2 % (0.4-1.5) L 07/03/25 13:21 Total Hemoglobin 13.4 g/dL (12-16) 07/03/25 13:21 Sodium 141.0 mmol/L (131-143) 07/03/25 13:21 Potassium 3.5 mmol/L (3.5-5.0) 07/03/25 13:21 Glucose 234.0 mg/dL (70-115) H 07/03/25 13:21 Ionized Calcium 1.2 mmol/L (1.1-1.4) 07/03/25 13:21 O2 Delivery Device Room air 07/03/25 13:21 FiO2 21.0 % 07/03/25 13:21 [place] ID [place] 07/03/25 13:21 Sodium 138 mmol/L (136-145) 07/05/25 05:17 Potassium 3.3 mmol/L (3.5-5.1) L 07/05/25 05:17 Chloride 105 mmol/L (98-107) 07/05/25 05:17 Carbon Dioxide 24 mmol/L (22-29) 07/05/25 05:17 Anion Gap 12.3 (5-19) 07/05/25 05:17 BUN 13 mg/dL (8-23) 07/05/25 05:17 Creatinine 0.6 mg/dL (0.5-0.9) 07/05/25 05:17 GFR Calculation Not Reportable 07/05/25 05:17 Glucose 264 mg/dL (65-115) H 07/05/25 05:17 POC Glucose 254 mg/dL (70-110) H 07/05/25 11:08 Estimat Average Glucose 186 07/03/25 20:45 Hemoglobin A1c 8.1 % (4.0-6.0) H 07/03/25 20:45 Calculated Osmolality 295 mOsm/kg (285-295) 07/05/25 05:17 Lactic Acid 2.0 mmol/L (0.5-2.2) 07/03/25 13:52 Calcium 8.1 mg/dL (8.5-10.5) L 07/05/25 05:17 Iron 48 ug/dL (37-145) 07/03/25 13:52 Ferritin 247 ng/mL (15-150) H 07/03/25 13:52 Total Bilirubin 0.4 mg/dL (0.15-1.2) 07/05/25 05:17 AST 30 U/L (0-32) 07/05/25 05:17 ALT 31 U/L (0-33) 07/05/25 05:17 Alkaline Phosphatase 92 U/L (35-105) 07/05/25 05:17 Troponin T Baseline 12 ng/L (0-10) H 07/03/25 13:52 Troponin T 120 Minute 10.97 ng/L (0-10) H 07/03/25 15:23 Delta Troponin T -1.03 ABS# (0-10) L 07/03/25 15:23 Troponin T Hi Sens 6Hr 14.01 ng/L (0-10) H 07/03/25 20:45 Troponin T Hi Sens 6Hr Delta 2.01 ng/L (0-12) 07/03/25 20:45 C-Reactive Protein 32.0 mg/L (0.0-4.9) H 07/03/25 13:52 NT-Pro-B Natriuret Pep 187 pg/mL (0-450) 07/04/25 04:46 Total Protein 5.8 g/dL (6.6-8.7) L 07/05/25 05:17 Albumin 3.3 g/dL (3.5-5.2) L 07/05/25 05:17 Globulin 2.5 g/dL (1.3-4.6) 07/05/25 05:17 Triglycerides 281 mg/dL (0-150) H 07/03/25 20:45 Cholesterol 307 mg/dL (0-200) H 07/03/25 20:45 LDL Cholesterol, Calc 221 mg/dL (50-129) H 07/03/25 20:45 HDL Cholesterol 30 mg/dL (60-100) L 07/03/25 20:45 LDL/HDL Ratio 7.37 RATIO (0.00-3.22) H 07/03/25 20:45 Cholesterol/HDL Ratio 10.23 mg/dL (0.0-4.40) H 07/03/25 20:45 Lipase 20 U/L (13-60) 07/03/25 13:52 Procalcitonin 0.10 ng/mL (0-0.5) 07/03/25 13:52 TSH 1.82 uIU/mL (0.27-4.20) 07/03/25 20:45 Urine Color Dark yellow (Yellow) A 07/03/25 12: Urine Appearance Cloudy (CLEAR) A 07/03/25 12:41 Urine pH 7.5 (5-7) 07/03/25 12:41 Ur Specific [place] 1.019 (1.005-1.030) 07/03/25 12: Urine Protein Trace (Negative) A 07/03/25 12:41 Urine Glucose (UA) Trace (Normal) H 07/03/25 12:41 Urine Ketones 1+ (Negative) H 07/03/25 12: Urine Blood Negative (Negative) 07/03/25 12: Urine Nitrate Positive (Negative) A 07/03/25 12:41 Urine Bilirubin Negative (Negative) 07/03/25 12: Urine Urobilinogen 1.0 mg/dL (Negative) 07/03/25 12: Ur Leukocyte Esterase 1+ (Negative) A 07/03/25 12: Urine RBC 0-2 /hpf (0-2) 07/03/25 12:41 Urine WBC 21-50 /hpf (0-5) H 07/03/25 12:41 Ur Squamous Epith Cells 0-5 /hpf (0-5) 07/03/25 12: Amorphous Sediment Not Reportable 07/03/25 12: Urine Bacteria 4+ /hpf (NONE) H 07/03/25 12: Hyaline Casts 0-4 /lpf H 07/03/25 12:41 Hepatitis A IgM Ab Non-reactive (Nonreactive) 07/03/25 13:52 Hep Bs Antigen Non-reactive (Nonreactive) 07/03/25 13:52 Hep B Core IgM Ab Non-reactive (Nonreactive) 07/03/25 13:52 Hepatitis C Antibody Non-reactive (Nonreactive) 07/03/25 13:52 Influenza A (PCR) Negative (Negative) 07/03/25 13:28 Influenza Type B (PCR) Negative (Negative) 07/03/25 13:28 RSV (PCR) Negative (Negative) 07/03/25 13:28 SARS-CoV-2 (PCR) Negative (Negative) 07/03/25 13:28 Vitals Last Vital Signs Temp 97.7 F 07/05/25 11:55 Pulse 83 07/05/25 11:55 Resp 16 07/05/25 11:55 BP 164/78 07/05/25 11:55 Pulse Ox 100 07/05/25 11:55 O2 Del Method Room Air 07/05/25 11:55 Discharge Plan Discharge Patient Disposition: Xfer SNF Condition: Stable Prescriptions: New aspirin 81 mg Tablet,Delayed Release (Dr/Ec) 81 mg PO DAILY 30 Days Qty: 30 0RF atorvastatin 40 mg Tablet 40 mg PO BEDTIME 30 Days Qty: 30 0RF insulin lispro [Humalog U-100 Insulin] 100 unit/mL Solution See Rx Instructions .ROUTE .COMPLEX Qty: 10 0RF Rx Instructions: inject subcut, tid, after meals, based on low dose insulin sliding scale cefdinir 300 mg capsule 300 mg PO BID 5 Days Qty: 10 0RF Continued brimonidine-timolol 0.2-0.5 % drops 1 drop ophthalmic (eye) BID (DME) BD Eclipse Luer-Savita 3 mL 25 x 5/8 syringe See Rx Instructions .Route Qty: 50 0RF Rx Instructions: Use with B12 Injection. First month every 2 weeks, then monthly One-A-Day Women's Complete 18 mg iron- 400 mcg tablet 1 tab PO DAILY cholecalciferol (vitamin D3) [Vitamin D3] 50 mcg (2,000 unit) Tablet 50 mcg PO DAILY donepezil 10 mg tablet 10 mg PO QPM cyanocobalamin (vitamin B-12) 1,000 mcg/mL solution 1,000 mcg IM Q30D Discontinued glipizide 10 mg tablet 10 mg PO BID Discharge Order = DC NOW: Discharge Order (Routine); Ordered 07/05/25 Ordered By: Evan Dickens Referrals: [facility] [Outside] Shayan Babb DPM [Physician, Podiatry] - 4-7 days Referral Note: right foot injury We have notified your physician's clinic of the need for a follow-up appointment to be scheduled. If you have not heard from them within the next 2 business days, please call them directly. KEYUR Rousseau, LEARNING ANALYST [Primary Care Provider, Family Practice] Discharge Diet: Cardiac Discharge Activity: Resume usual activity Patient Instructions: Aspirin (By mouth), Atorvastatin (By mouth) (Lipitor, Atorvaliq), Cefdinir (By mouth) (Omnicef), Insulin Lispro (By injection) (Humalog, Humalog Pen, Lispro-PFC,..., Urinary Tract Infection in Women (DC), Encephalopathy (DC), Opioid Safety, Pain Management, Patient Portal & Bhupendra Instructions Activity Restrictions/Additional Instructions: -Please monitor your blood sugars closely -Monitor your blood sugars 3 times daily as after meals -Please record your blood sugars, and a blood sugar log -For your NovoLog -Please inject blood sugar after meals based on sliding scale provided -Do not inject insulin if you do not eat as hypoglycemia kills -This is a NovoLog sliding scale -Insulin sliding ?fingerstick? Insulin ?141-180?0 units/sq 181-220?2 units/sq ?221-260?4 units/sq ?261-300 6 units/sq ?301-350?8 units/sq ?351-400 10 units/sq ?401-450?12 units/sq >450? 14units/sq -If your blood sugar is greater than 500 go to the emergency room -If your blood sugar is less than 60 or at anytime you feel lightheaded or dizzy or diaphoretic or have chest palpitations check your blood sugar, and eat a hard candy or drink orange juice and go immediately to the emergency room -Remember hypoglycemia kills, so if his blood sugar is less than 60 we have to increase it by taking in a sugary meal such as a hard candy or orange juice and go to the emergency room -If you have any questions please call us where here to help Discharge Attestations Time Spent in Discharge Care*: greater than 30 min Quality Metrics Clinical Quality Measures [ No reported AMI, CVA or VTE this stay] Coding Level of Care Code Acute Code for Chg Fwd Diagnoses Type 2 diabetes mellitus without complication, without long-term current use of insulin E11.9 Diabetes mellitus assisted insulin use: without long chain dyeing machine operator use Diabetes mellitus complication status: without complication Urinary tract infection N39.0 Decubitus ulcer L89.90 Encephalopathy G93.40
[2025-07-05 16:34] VITALS: BP 164/78; PULSE 83; RESP 16; TEMP 36.5; O2SAT 100
== END 2025-07-05 15:45 | disposition skilled nursing facility (03) | DRG 690 ==
LOC: ER 14:56 → MEDSURG 16:30
PROVIDERS: Admitting Provider Family Medicine; Emergency Provider Emergency Medicine; PCP Nurse Practitioner Family; Visit Provider Family Medicine
DX: N39.0 Urinary tract infection, site not specified (principal); G93.40 Encephalopathy, unspecified; E11.9 Type 2 diabetes mellitus without complications; L89.151 Pressure ulcer of sacral region, stage 1; F03.90 Unspecified dementia, unspecified severity, without behavioral disturbance, psychotic disturbance, mood disturbance, and anxiety; M79.671 Pain in right foot; R32 Unspecified urinary incontinence; D64.9 Anemia, unspecified; Z86.73 Personal history of transient ischemic attack (TIA), and cerebral infarction without residual deficits
CPT/HCPCS: 36415; 36416; 36600; 70450; 71045; 73502; 73630; 73700; 74176; 80051; 80053; 80061; 80074; 81001; 82306; 82330; 82607; 82728; 82746; 82805; 82962; 83036; 83540; 83550; 83605; 83690; 83880; 84145; 84443; 84484; 85025; 86140; 87040; 87077; 87086; 87186; 87637; 92507; 92523; 92610; 93005; 93306; 93880; 94664; 96372; 96374; 97116; 97162; 97167; 97530; 99285; J0696; J1650; J1815; J2470; J7030; J9999

== ENCOUNTER → 2025-07-23 11:08 | Outpatient (BNVA) | payer MEDICARE, SELFPAY | PROVIDERS: PCP Nurse Practitioner Family; Visit Provider Nurse Practitioner Family | DX: E11.9 Type 2 diabetes mellitus without complications (principal); E55.9 Vitamin D deficiency, unspecified; D64.89 Other specified anemias; R41.89 Other symptoms and signs involving cognitive functions and awareness | CPT/HCPCS: 81003; 87086 ==